=== PATIENT | female | born 1990 | race Caucasian/White ===

== ENCOUNTER 2020-12-05 07:22 | Emergency (ER) | payer MEDICAID, SELFPAY ==
--- NOTE | ~2020-12-05 | CT_ITS ---
EXAMINATION: CT CHEST WITH CONTRAST CLINICAL INFORMATION: Large anterior left mediastinal mass on chest x-ray. Age 30. COMPARISON: Chest radiographs 12/05/2020 TECHNIQUE: Multidetector volumetric CT imaging of the chest was obtained after the administration of 85 mL of Omnipaque 350 intravenous contrast without immediate adverse reactions. Axial MIP volume rendering provided. Sagittal and coronal reformatted images were obtained. This CT examination was performed using dose optimization techniques as appropriate, variously including the following: *Automated exposure control *Adjustment of mA and/or kV according to patient size (this includes techniques or standardized protocols for targeted exams where dose is matched to indication/reason for exam; i.e. extremities or head) *Use of iterative reconstruction technique DLP: 606 mGy-cm FINDINGS: LUNGS: The lungs are clear. There is no airspace consolidation, pulmonary nodule, or lobar segmental atelectasis. The central airways are clear. There is no thoracic or bronchial compression or displacement. No bronchiectasis or endobronchial lesion. MEDIASTINUM: There is a large circumscribed left anterior mediastinal mass at level of great vessels measuring approximately 7 x 7 x 7 cm in size. Attenuation is approximately 33 HU with some lower attenuation foci internally likely necrotic foci. There is no associated calcification. No invasion surrounding structures, although lesion difficult to separate from left thigh numbness. No compression on the trachea or bronchi or pulmonary artery. The thyroid is unremarkable. There are some grouped nodes just superior to lesion just below the base of the neck. Otherwise no mediastinal or hilar adenopathy. No pericardial effusion. No right heart strain. No central PE. PLEURA: No pleural thickening or effusion. No pneumothorax or pneumomediastinum. AXILLA: No lymphadenopathy. No supraclavicular adenopathy. UPPER ABDOMEN: No retrocrural or upper retroperitoneal adenopathy. Spleen normal in size and homogeneous, 11.7 cm sagittal dimension. Visualized liver homogeneous. OSSEOUS STRUCTURES: Unremarkable. CT/CT chest w con IMPRESSION: 1. Large circumscribed anterior left mediastinal mass 7 cm with some small superior left mediastinal nodes. Primary differential considerations include Hodgkin's lymphoma, teratoma, thymic mass. 2. No compression airway or vasculature. No pericardial effusion. Lungs clear.
--- NOTE | ~2020-12-05 | CT_ITS ---
EXAMINATION: CT ABDOMEN AND PELVIS WITHOUT CONTRAST CLINICAL INFORMATION: Mediastinal mass. Assess abdomen and pelvis. COMPARISON: Chest radiographs 12/05/2020, CT chest with contrast 12/05/2020 TECHNIQUE: Multidetector volumetric imaging was performed from the superior aspect of the liver through the pubic symphysis. Exam is performed approximately 90 minutes following contrast enhanced CT chest described in separate report. No additional contrast is given for this exam. Sagittal and coronal reformatted images were obtained on the technologist's workstation. This CT examination was performed using dose optimization techniques as appropriate, variously including the following: *Automated exposure control *Adjustment of mA and/or kV according to patient size (this includes techniques or standardized protocols for targeted exams where dose is matched to indication/reason for exam; i.e. extremities or head) *Use of iterative reconstruction technique DLP: 1003 mGy-cm FINDINGS: LUNG BASES: The visualized lung bases are unremarkable. LIVER, GALLBLADDER, AND BILIARY TREE: The liver is normal in size and smooth in contour, measuring 15.8 cm in length. The hepatic parenchyma appears homogeneous. There is no intrahepatic biliary ductal dilatation. No focal parenchymal lesion demonstrated. The gallbladder is unremarkable with no evidence of radiopaque gallstones, gallbladder wall thickening, or obvious pericholecystic inflammatory changes. PANCREAS: Unremarkable. SPLEEN: The spleen is normal in size measuring 10.5 cm in length. The parenchyma is homogeneous. ADRENAL GLANDS: Normal. KIDNEYS AND URETERS: The kidneys are normal in size and smooth in contour. There is contrast in the pelvicalyceal system and ureters as this exam performed within 90 minutes of contrast enhanced CT chest. There is no hydronephrosis or hydroureter or mucosal thickening. BLADDER: Unremarkable. GASTROINTESTINAL TRACT: There is no bowel obstruction or focal inflammatory changes in the bowel or mesentery. The appendix is normal. There is no ascites or fluid collection. ABDOMINAL WALL: Incidental diastases rectus. No ventral or inguinal hernia. LYMPH NODES: No lymphadenopathy. VASCULAR: Unremarkable. PELVIC VISCERA: The uterus is anteverted and normal in size. No pelvic ascites. There is a mass on the left adnexa merging with the uterus and measuring 3.4 x 4.2 x 4.6 cm. This may represent adnexal mass or exophytic fibroid. On the right, there is a heavily calcified oval mass adjacent to the posterior right uterine body measuring 1.5 x 2.4 x 2.8 cm and density of 526 HU. The contrast density in the urinary bladder is 772 HU by comparison. The right ureter is posterior to the lesion and this does not appear to represent a diverticulum from the ureter. OSSEOUS STRUCTURES: Unremarkable. CT/CT abdomen pelvis wo con IMPRESSION: 1. Abdominal organs unremarkable. Spleen normal in size. No adenopathy or ascites. 2. Left adnexal mass versus exophytic fibroid 3 x 4 x 5 cm. Right adnexal benign calcification versus exophytic calcified fibroid under 3 cm. No pelvic ascites.
--- NOTE | ~2020-12-05 | XR_ITS ---
EXAMINATION: XR CHEST CLINICAL INFORMATION: Gurgling on deep breathing. COMPARISON: None TECHNIQUE: Portable upright AP and lateral views of the chest are obtained. FINDINGS: There is large left anterior mediastinal mass at level of hilum, estimated at 5 cm width and 7 cm height. The heart is normal in size. The vascularity is normal. There is no vascular congestion. The lungs are clear. There is no airspace consolidation or effusion. The costophrenic sulci are well-defined. The visualized bony structures are unremarkable. XR/XR chest 2V IMPRESSION: 1. Large left anterior mediastinal mass. This may be further characterized with CT chest with contrast. 2. Lungs clear. No vascular congestion, infiltrate, or effusion.
[2020-12-05 07:25] VITALS: BP 103/61; PULSE 77; RESP 16; TEMP 36.2; O2SAT 99; BMI 42.7
--- NOTE | 2020-12-05 08:09 | ED_ITS ---
HPI - SOB/Dyspnea General Chief Complaint: Dyspnea Stated Complaint: SOB Time Seen by Provider: 12/05/20 08:09 Source: patient Mode of arrival: ambulatory Limitations: no limitations History of Present Illness HPI Narrative: Patient 8 months ago had COVID. Patient went to [facility] and they checked her heart. She did not have a chest xray. Patient was vaccinated with pfizer. Patient feels that when she takes a deep breath there is gurgling. No fever MD elicited complaint: shortness of breath Onset (ago): month(s) Timing: intermittent Severity: mild Exacerbating factors: deep breaths Related Data Allergies Allergy/AdvReac Type Severity Reaction Status Date / Time No Known Allergies Allergy Unverified 01/19/20 17:23 [No Known Allergies*] Review of Systems Constitutional: Constitutional: Reports no additional constitutional complaints Eyes: Eyes: Reports no additional eye complaints ENT: Denies dizziness Cardiovascular: Cardiovascular: Reports no additional cardiovascular complaints Respiratory: Respiratory: Reports as per HPI Gastrointestinal: Gastrointestinal: Reports no additional gastrointestinal complaints Genitourinary: Genitourinary: Reports no additional female genitourinary complaints Musculoskeletal: Musculoskeletal: Reports no additional musculoskeletal complaints Integumentary/Breasts: Skin/Breast: Denies rash Neurologic: Reports system reviewed and no additional complaints, except as documented, Denies dizziness and Denies Sensory deficit (Neuro) Psychiatric: Psychiatric: Denies anxiety PMFSH Past Medical History Medical History No known health problems Social History Social History Alcohol intake: never Patient Tobacco Use Status: Never used Tobacco Physical Exam Vital Signs: Vital Signs: Last Vital Signs Temp 98.7 F 12/05/20 11:53 Pulse 86 12/05/20 11:53 Resp 18 12/05/20 11:53 BP 109/62 12/05/20 11:53 Pulse Ox 100 12/05/20 11:53 Body Mass Index 42.7 Neuro: Sensory Exam: No Sensory deficit (Neuro) Course Reevaluation(s) Reevaluation #1: Discussed with Dr. Díaz of oncology and Kathy of Thoracic surgery. Patient set up for thoracic appointment on Thursday 12/14 for a meeting with Dr. Be Time: 13:42 MDM - SOB/Dyspnea Lab Data Result diagrams: 12/05/20 09:53 12/05/20 09:53 Labs: Lab Results 12/05/20 12/05/20 12/05/20 Range/Units 09:53 09:53 12:23 WBC 9.4 (4.8-10.8) X10*3/uL RBC 4.49 (4.20-5.50) X10*6/uL Hgb 11.2 L (12.0-16.0) g/dl Hct 35.1 L (37-47) % MCV 78.2 L (80-98) fL MCH 24.9 L (27.0-33.0) pg MCHC 31.9 (31.0-35.0) g/dl RDW 14.8 (11.0-16.0) % Plt Count 369 (160-400) X10*3/uL MPV 8.8 L (9.4-12.3) fL Immature Gran % (Auto) 0.5 H (0.0-0.4) % Neut % (Auto) 69.1 (45-73) % Lymph % (Auto) 18.3 L (20-40) % [place] % (Auto) 7.3 (2-11) % Eos % (Auto) 4.5 H (0-4) % Baso % (Auto) 0.3 (0-2) % Lymph # (Auto) 1.7 (1.2-4.9) X10*3/uL [place] # (Auto) 0.7 (0.1-1.2) X10*3/uL Eos # (Auto) 0.4 (0.0-0.4) X10*3/uL Baso # (Auto) 0.0 (0.0-0.2) X10*3/uL Abs Immat Gran (auto) 0.05 H (0.00-0.03) X10*3/uL Absolute Neuts (auto) 6.5 (2.0-8.3) X10*3/uL Absolute Nucleated RBC 0.000 (0.0-0.012) X10*3/uL Nucleated RBC % (auto) 0.0 (0.0-0.2) /100WBC ESR 39 H (0-20) MM/HR Sodium 139 (135-145) mmol/L Potassium 3.7 (3.3-5.1) mmol/L Chloride 105 (96-108) mmol/L Carbon Dioxide 26 (22-29) mmol/L Anion Gap 12 (12-20) BUN 13 (9-16) mg/dL Creatinine 0.72 (0.5-1.4) mg/dL Estim Creat Clear Calc 127.9 Estimated GFR > 60 Random Glucose 101 (60-115) mg/dL Calcium 9.4 (8.4-10.2) mg/dL Lactate Dehydrogenase (122-220) U/L 12/05/20 Range/Units 12:23 WBC (4.8-10.8) X10*3/uL RBC (4.20-5.50) X10*6/uL Hgb (12.0-16.0) g/dl Hct (37-47) % MCV (80-98) fL MCH (27.0-33.0) pg MCHC (31.0-35.0) g/dl RDW (11.0-16.0) % Plt Count (160-400) X10*3/uL MPV (9.4-12.3) fL Immature Gran % (Auto) (0.0-0.4) % Neut % (Auto) (45-73) % Lymph % (Auto) (20-40) % [place] % (Auto) (2-11) % Eos % (Auto) (0-4) % Baso % (Auto) (0-2) % Lymph # (Auto) (1.2-4.9) X10*3/uL [place] # (Auto) (0.1-1.2) X10*3/uL Eos # (Auto) (0.0-0.4) X10*3/uL Baso # (Auto) (0.0-0.2) X10*3/uL Abs Immat Gran (auto) (0.00-0.03) X10*3/uL Absolute Neuts (auto) (2.0-8.3) X10*3/uL Absolute Nucleated RBC (0.0-0.012) X10*3/uL Nucleated RBC % (auto) (0.0-0.2) /100WBC ESR (0-20) MM/HR Sodium (135-145) mmol/L Potassium (3.3-5.1) mmol/L Chloride (96-108) mmol/L Carbon Dioxide (22-29) mmol/L Anion Gap (12-20) BUN (9-16) mg/dL Creatinine (0.5-1.4) mg/dL Estim Creat Clear Calc Estimated GFR Random Glucose (60-115) mg/dL Calcium (8.4-10.2) mg/dL Lactate Dehydrogenase 351 H (122-220) U/L Imaging Data CT scan - chest: Radiologist's impression: IMPRESSION: 1. Large circumscribed anterior left mediastinal mass 7 cm with some small superior left mediastinal nodes. Primary differential considerations include Hodgkin's lymphoma, teratoma, thymic mass. ? 2. No compression airway or vasculature. No pericardial effusion. Lungs clear. CT scan - abdomen: Radiologist's impression: IMPRESSION: ? 1. Abdominal organs unremarkable. Spleen normal in size. No adenopathy or ascites. ? 2. Left adnexal mass versus exophytic fibroid 3 x 4 x 5 cm. Right adnexal benign calcification versus exophytic calcified fibroid under 3 cm. No pelvic ascites. Discharge Plan Discharge Clinical Impression: Chest mass Patient Disposition: Home, Self-Care Additional Instructions: return for increased shortness of breath Referrals: Basia Jamison MD [Physician] - 12/14/20 11:15 am (evaluation for thoracic mass)
[2020-12-05 08:27] VITALS: BP 106/60; PULSE 70; RESP 17; TEMP 37.2; O2SAT 98
[2020-12-05 09:59] LABS: MANUAL DIFF FLAG NO
[2020-12-05 10:02] LABS: Basophils Percent Auto 0.3 % (0-2); Eosinophils Absolute Auto 0.4 X10*3/uL (0.0-0.4); Eosinophils Percent Auto 4.5 % (0-4); Hematocrit 35.1 % (37-47); Hemoglobin 11.2 g/dl (12.0-16.0); Imm Gran Abs Auto 0.05 X10*3/uL (0.00-0.03); Imm Gran Pct Auto 0.5 % (0.0-0.4); Lymphocytes Absolute Auto 1.7 X10*3/uL (1.2-4.9); Lymphocytes Percent Auto 18.3 % (20-40); Mean Corpuscular HGB Conc 31.9 g/dl (31.0-35.0); Mean Corpuscular Hemoglobin 24.9 pg (27.0-33.0); Mean Corpuscular Volume 78.2 fL (80-98); Mean Platelet Volume 8.8 fL (9.4-12.3); Monocytes Absolute Auto 0.7 X10*3/uL (0.1-1.2); Monocytes Percent Auto 7.3 % (2-11); Neutrophils Absolute Auto 6.5 X10*3/uL (2.0-8.3); Neutrophils Percent Auto 69.1 % (45-73); Platelet Count 369 X10*3/uL (160-400); Red Blood Count 4.49 X10*6/uL (4.20-5.50); Red Cell Distribution Width 14.8 % (11.0-16.0); White Blood Count 9.4 X10*3/uL (4.8-10.8)
[2020-12-05 10:26] LABS: Anion Gap 12 (12-20); Blood Urea Nitrogen 13 mg/dL (9-16); Calcium 9.4 mg/dL (8.4-10.2); Carbon Dioxide 26 mmol/L (22-29); Chloride 105 mmol/L (96-108); Creatinine Clr Calc Pharmacy 127.9; Estimated Glomerular Filt Rate > 60; Glucose Random 101 mg/dL (60-115); Potassium 3.7 mmol/L (3.3-5.1); Sodium 139 mmol/L (135-145)
[2020-12-05] MEDS: iohexoL 350 MG/ML 100 ML INFUS..BTL IV (10:41)
[2020-12-05 11:03] VITALS: BP 102/63; PULSE 72; RESP 16; TEMP 37.1; O2SAT 100
[2020-12-05 11:53] VITALS: BP 109/62; PULSE 86; RESP 18; TEMP 37.1; O2SAT 100
--- NOTE | 2020-12-05 11:56 | PC.NURSE ---
pt a&ox3, vss, pt requesting something to drink, pt c/o midsternal pain with inspiration only 1/10, will continue to monitor.
[2020-12-05 13:10] LABS: Lactate Dehydrogenase 351 U/L (122-220)
[2020-12-05 13:27] LABS: Erythrocyte Sedimentation Rate 39 MM/HR (0-20)
[2020-12-05 14:38] LABS: Lactate Dehydrogenase 309 U/L (122-220)
[2020-12-06 13:20] LABS: Alpha Fetoprotein 2.2 ng/mL
[2020-12-06 15:47] LABS: HCG Tumor Marker <3 mIU/mL
[2020-12-08 22:56] LABS: Acetylcholine Recept. Blocking <15 (<15)
[2020-12-09 23:46] LABS: Acetylcholine Receptor Binding <0.30 nmol/L
[2020-12-10 23:02] LABS: Incubated PTT-LA Mix CORRECTED; Mixing Study - PT 10.9 sec (9.0-11.5); PTT LA 52 sec (< OR = 40); PTT-LA Mix CORRECTED
[2020-12-11 22:17] LABS: Acetylcholine Recep Modulating 20
== END 2020-12-05 14:08 | disposition home or self-care (01) ==
PROVIDERS: Physician Assistant; Emergency Provider Emergency Medicine
DX: R22.2 Localized swelling, mass and lump, trunk (principal)
CPT/HCPCS: 36415; 71046; 71260; 74176; 80048; 82105; 83519; 83615; 84702; 85025; 85611; 85652; 85732; 99284; Q9967

== ENCOUNTER → 2020-12-14 10:58 | Outpatient (BNVA) | payer MEDICAID, SELFPAY | PROVIDERS: Visit Provider Surgery | DX: J98.59 Other diseases of mediastinum, not elsewhere classified (principal) | CPT/HCPCS: 99212 ==

== ENCOUNTER 2020-12-27 16:08 | Outpatient (REF) | payer MEDICAID, SELFPAY ==
[2020-12-27 16:57] LABS: Hematocrit 33.7 % (37-47); Hemoglobin 10.9 g/dl (12.0-16.0); Mean Corpuscular HGB Conc 32.3 g/dl (31.0-35.0); Mean Corpuscular Hemoglobin 25.2 pg (27.0-33.0); Mean Corpuscular Volume 77.8 fL (80-98); Mean Platelet Volume 9.3 fL (9.4-12.3); Platelet Count 406 X10*3/uL (160-400); Red Blood Count 4.33 X10*6/uL (4.20-5.50); Red Cell Distribution Width 14.7 % (11.0-16.0); White Blood Count 9.4 X10*3/uL (4.8-10.8)
== END 2020-12-27 16:09 | disposition home or self-care (01) ==
LOC: HO.LAB 16:08
PROVIDERS: PCP Nurse Practitioner Family; Visit Provider Surgery
DX: J98.59 Other diseases of mediastinum, not elsewhere classified (principal)
CPT/HCPCS: 36415; 85027

== ENCOUNTER 2020-12-28 11:24 | Day surgery (SDC) | payer MEDICAID, SELFPAY ==
[2020-12-28] VITALS (10 sets, daily range): BP systolic 94–111; BP diastolic 54–67; PULSE 54–78; RESP 18–20; TEMP 36.2–36.4; O2SAT 96–100; BMI 42.9
--- NOTE | ~2020-12-28 | CT_ITS ---
PROCEDURE: CT-GUIDED ASPIRATION, FINE NEEDLE, WITH IMAGE GUIDANCE CLINICAL INFORMATION: Mediastinal mass. COMPARISON: None TECHNIQUE: Procedure and risks and benefits including bleeding, infection and pneumothorax were discussed with the patient and informed consent was obtained. The patient was positioned in the supine position. Limited axial images through the upper chest following 65 mL of Omnipaque 350 intravenous contrast. The left upper anterior chest was prepped and draped in the usual sterile fashion. The skin and soft tissues were anesthetized with 1% lidocaine plain. Using CT guidance and a coaxial system, access to the left-sided mediastinal mass was obtained. Six 20-gauge core biopsies were obtained and placed in formalin and flow cytometry solution. The patient received Versed 2 mg and fentanyl 100 mcg intravenously during the procedure. Total sedation time was [address] examination was performed using dose optimization techniques as appropriate, variously including the following: *Automated exposure control *Adjustment of mA and/or kV according to patient size (this includes techniques or standardized protocols for targeted exams where dose is matched to indication/reason for exam; i.e. extremities or head) *Use of iterative reconstruction technique DLP: 159 mGy-cm FINDINGS: There is a large left-sided mediastinal mass. Postbiopsy images demonstrate no evidence of hemorrhage or pneumothorax. CT/CT guided FNA IMPRESSION: CT-guided mediastinal mass biopsy.
--- NOTE | ~2020-12-28 | XR_ITS ---
EXAMINATION: XR CHEST CLINICAL INFORMATION: Post lung biopsy COMPARISON: Previous chest x-ray 12/06/2019 TECHNIQUE: Frontal view of the chest was obtained. FINDINGS: The cardiac silhouette does not appear enlarged. There is a left-sided mediastinal mass that appears unchanged. The lungs are clear. There is no pleural effusion or pneumothorax. Bony structures are unremarkable. XR/XR chest 1V IMPRESSION: No pneumothorax. Stable left mediastinal mass.
[2020-12-28 11:53] LABS: UPreg QC Valid YES; Urine Pregnancy NEGATIVE (NEGATIVE)
[2020-12-28 12:02] LABS: INTERNATIONAL NORM RATIO 1.1 (0.9-1.1); Prothrombin Time 12.3 SEC (9.9-13.0)
[2020-12-28 12:05] LABS: Partial Thromboplastin Time 43.6 SEC (24.1-38.0)
== END 2020-12-28 16:42 | disposition home or self-care (01) ==
PROVIDERS: Radiology Diagnostic Radiology; PCP Nurse Practitioner Family; Visit Provider Radiology Diagnostic Radiology
DX: J98.59 Other diseases of mediastinum, not elsewhere classified (principal); Z86.16 Personal history of COVID-19
CPT/HCPCS: 10009; 32408; 36415; 71045; 81025; 85610; 85730; 88184; 88185; 88300; 88305; 88313; 88333; 88341; 88342; 88360; 99152; 99153; J2250; J3010

== ENCOUNTER 2021-01-04 15:00 | Outpatient (REF) | payer MEDICAID, SELFPAY ==
--- NOTE | ~2021-01-04 | MR_ITS ---
EXAMINATION: MR CHEST WITHOUT AND WITH CONTRAST CLINICAL INFORMATION: Mediastinal mass. COMPARISON: Chest CT 12/05/2020nd chest x-ray 12/28/2020. TECHNIQUE: Sagittal axial and coronal sequences through the chest with and without contrast. The patient received 10 mL of intravenous Gadavist contrast. FINDINGS: There is a large left mediastinal mass. This measures 7 x 7 x 9 cm in AP transverse and longitudinal dimension. This abuts the left innominate vein, aortic arch, AP window region and the left heart border. This is low signal on T1 weighted sequences. This is slightly high signal and heterogeneous on T2 weighted sequences. There is no loss of signal on out of phase sequences. There are linear low-signal areas on T2-weighted sequences seen in the lesion. This may be related to blood product and recent biopsy as no calcifications are seen on CT scan. This has well-defined borders. This demonstrates gradual delayed homogeneous enhancement. Lungs are clear. The heart does not appear enlarged. There is no pericardial effusion. There are small mediastinal lymph nodes in the paratracheal and subcarinal regions. No hilar adenopathy is seen. There is no pleural effusion or pleural thickening. No chest wall mass or enlarged axillary lymph nodes are seen. Thyroid gland is not well visualized. This appears separate from the thyroid gland. Images through the upper abdomen are unremarkable. Bony structures are unremarkable. MR/MR chest wo/w con IMPRESSION: Large enhancing left-sided mediastinal mass. This does not demonstrate loss of signal on out of phase sequences to suggest thymic hyperplasia. Differential would include thymoma, less likely thymic carcinoma, lymphoma, germ cell tumor and metastatic disease.
== END 2021-01-04 15:01 | disposition home or self-care (01) ==
LOC: HO.MRI 15:00
PROVIDERS: PCP Nurse Practitioner Family; Visit Provider Surgery
DX: J98.59 Other diseases of mediastinum, not elsewhere classified (principal)
CPT/HCPCS: 71552; A9585

== ENCOUNTER → 2021-01-11 10:19 | Outpatient (BNVA) | payer MEDICAID, SELFPAY | PROVIDERS: PCP Nurse Practitioner Family; Visit Provider Surgery | DX: J98.59 Other diseases of mediastinum, not elsewhere classified (principal); C85.10 Unspecified B-cell lymphoma, unspecified site | CPT/HCPCS: 99212 ==

== ENCOUNTER → 2021-01-28 08:58 | Outpatient (BNV) | payer MEDICAID, SELFPAY | PROVIDERS: Referring Provider Surgery; Visit Provider Internal Medicine Medical Oncology | DX: C85.22 Mediastinal (thymic) large B-cell lymphoma, intrathoracic lymph nodes (principal) | CPT/HCPCS: 99203; 99213; 99214 ==

== ENCOUNTER 2021-01-28 10:25 | Outpatient (REF) | payer MEDICAID, SELFPAY | END 2021-01-28 10:26 | disposition home or self-care (01) | LOC: HO.LAB 10:25 | PROVIDERS: Visit Provider Internal Medicine Medical Oncology | DX: Z13.89 Encounter for screening for other disorder (principal) ==

== ENCOUNTER 2021-02-05 08:59 | Outpatient (REF) | payer MEDICAID, SELFPAY ==
--- NOTE | ~2021-02-05 | PE_ITS ---
EXAMINATION: Fluorine-18 FDG PET/CT Scan CLINICAL INDICATION: Initial treatment management. Large B-cell lymphoma, initial staging. PROCEDURE: 71 minutes following the intravenous administration of 14.9 mCi of fluorine 18 FDG, images from the base of the skull to the mid thighs were obtained using a combined PET/CT scanner with CT scan based attenuation correction. No oral contrast was administered. No intravenous contrast was administered. Transverse, coronal, sagittal, and volume reconstruction projections were obtained. The patient's blood glucose as determined by a finger stick, was 99 mg/dl immediately prior to injection. Total CT exam dose-length product 1032.89 mGy-cm * These CT images were obtained using dose optimization techniques as appropriate, variously including the following: Automated exposure control * Adjustment of mA and/or kV according to patient size (this includes techniques or standardized protocols for targeted exams where dose is matched to indication/reason for exam; i.e. extremities or head) * Use of iterative reconstruction technique COMPARISON: No previous PET/CT scan is available for comparison. The diagnostic CT scan of the chest, abdomen, and pelvis, dated 12/05/2020, is available for comparison. FINDINGS: NECK AND VISUALIZED HEAD: No foci of abnormal FDG activity are noted. The distribution of FDG activity is physiological. There is no cervical lymphadenopathy. There is some retained mucus present posteriorly in the right maxillary sinus, with no associated abnormal FDG activity. THORAX: There is an intensely FDG avid anterior mediastinal mass showing SUVmax 28.6, slice 75/267. This measures 8.0 x 6.7 cm in largest transverse dimensions, and approximately 7 cm cephalocaudad. It appears very similar to its appearance on the eighth 08/21/[address] scan with slight differences in measurements possibly due to the difference in technique with the previous study performed with a breath-hold. No additional foci of abnormal FDG activity are present in the chest. No pulmonary nodules are visualized. A small left pleural effusion is present and this is new since 12/05/2020. There is no additional mediastinal, supraclavicular, or axillary lymphadenopathy. There is no pneumothorax or pericardial fluid. ABDOMEN AND PELVIS: There is a left adnexal mass which is predominantly fluid density which measures 3.9 x 2.6 cm in largest transverse dimensions, and approximately 3.4 cm cephalocaudad. The posterior aspect of this shows weak FDG activity, SUVmax 4.9, slice 202/267. A dense calcification abutting the right lateral aspect of the uterus is noted measuring 2.4 x 1.3 cm in largest transverse dimension and 3.5 cm in largest dimension in the coronal plane, and this shows no associated abnormal FDG activity.. Both of these findings are not significantly changed from the 12/05/2020 CT scan of the abdomen and pelvis. More intensely increased FDG activity is present in the endometrial cavity, showing SUVmax 5.7, slice 201/267. This may be physiological depending on the patient's current menstrual status. No other foci of abnormal FDG activity are present in the abdomen or pelvis. There is mild FDG activity throughout the gastrointestinal tract without a suspicious focal component. There is diverticulosis without evidence of diverticulitis. The hollow viscera are otherwise unremarkable. The liver, gallbladder, spleen, kidneys, and adrenal glands are unremarkable. There is no retroperitoneal, mesenteric, pelvic or inguinal lymphadenopathy. MUSCULOSKELETAL: The bone marrow FDG activity is slightly prominent in the spine and pelvis, but this is not definitely outside the limits of normal. There are no discrete foci of more intensely increased FDG activity in the osseous structures. There are no suspicious sclerotic or lytic lesions visualized. VASCULAR: No significant abnormalities are present. PET/PET CT fusion skull to thigh IMPRESSION: 1. An intensely FDG avid anterior mediastinal mass is present as described above, consistent with the known diagnosis of large B-cell lymphoma. 2. A left sided predominantly cystic adnexal mass is present, similar to its appearance on the 12/05/[address] scan. There is some mild FDG activity in the posterior aspect of this which is of uncertain clinical significance, but the mild intensity suggests this is not malignant in etiology. This could be further characterized with MRI performed without and with intravenous contrast. 3. Mild FDG activity in the endometrial cavity is nonspecific but most likely related to menstruation. Clinical correlation is recommended. This is probably physiological. 4. A dense calcification abutting the right side of the uterus is unchanged from the 12/05/2020 CT scan with no associated abnormal FDG activity. This is likely a benign adnexal calcification or exophytic calcified fibroid. 5. No additional abnormalities suspicious for other metastatic or malignant lesions are noted.
== END 2021-02-05 09:00 | disposition home or self-care (01) ==
LOC: HO.PET 08:59
PROVIDERS: Visit Provider Internal Medicine Medical Oncology
DX: Z13.89 Encounter for screening for other disorder (principal)

== ENCOUNTER 2021-02-05 11:29 | Day surgery (SDC) | payer MEDICAID, SELFPAY ==
[2021-02-05 11:47] VITALS: BMI 41.5
[2021-02-05 11:52] LABS: UPreg QC Valid YES; Urine Pregnancy NEGATIVE (NEGATIVE)
[2021-02-05 12:10] VITALS: BP 121/77; PULSE 78; RESP 16; TEMP 36.7; O2SAT 99
--- NOTE | 2021-02-05 13:30 | PM.HEMONCBM ---
Bone Marrow Aspiration - Bone Marrow Aspiration Procedure:: *Service Date: [02/05/21] Bone Marrow Aspiration & Biopsy. Pre Op Diagnosis:: Mediastinal Lymphoma. Post Op Diagnosis:: Mediastinal Lymphoma. Surgeon:: Sheila Galvan. Anesthesia:: MAC. Consent:: Informed consent obtained from the patient for the procedure. Pros and cons of biopsy explained. The patient was willing to proceed with the procedure under MAC and local anesthesia. Procedure in Detail:: *Service Date: 02/05/21. *Procedure: Bone marrow aspirate & biopsy. *Pre Op Dx: Mediastinal Lymphoma. *Post Op Dx: Same. *Surgeon: Sheila Galvan. . The patient was positioned prone. The left posterior superior iliac spine prepped and draped. Pt. was anesthetized under MAC. Under aseptic precautions, 7.5 ml of 1% lidocaine used for local anesthesia. Abone marrow aspirate was taken. With the Jamshidi needle, a core biopsy obtained without any complications. Specimens were sent for allen's stain, flow cytometry and cytogenetics. Biopsy was sent for histology. The patient tolerated the procedure well. Bandage was applied and patient was positioned on her back for 10 to 15 minutes after the procedure. The patient was advised to call us if she develops any pain or swelling at the surgical site. Follow up in 2 weeks.
[2021-02-05 13:35] VITALS: BP 111/66; PULSE 65; RESP 16; TEMP 36.8; O2SAT 94
[2021-02-05 13:39] LABS: Bone Marrow SEE SEPARATE REPORT
[2021-02-05 13:50] VITALS: BP 105/70; PULSE 70; RESP 18; TEMP 36.8; O2SAT 98
== END 2021-02-05 14:53 | disposition home or self-care (01) ==
PROVIDERS: Anesthesiology; Visit Provider Internal Medicine Medical Oncology
PROC: (CPT 38221; principal; 2021-02-05 12:30)
DX: C85.20 Mediastinal (thymic) large B-cell lymphoma, unspecified site (principal); R07.9 Chest pain, unspecified; R53.83 Other fatigue; E66.01 Morbid (severe) obesity due to excess calories; Z68.41 Body mass index [BMI] 40.0-44.9, adult; Z86.16 Personal history of COVID-19
CPT/HCPCS: 38222; 36415; 81025; 85097; 88184; 88185; 88237; 88264; 88280; 88305; 88311; 88313; J1100; J1642; J2250; J2405; J3010

== ENCOUNTER 2021-02-08 07:14 | Day surgery (SDC) | payer MEDICAID, SELFPAY ==
--- NOTE | ~2021-02-08 | IR_ITS ---
EXAMINATION: ULTRASOUND AND FLUOROSCOPY-GUIDED PORT INSERTION CLINICAL INFORMATION: Port insertion for chemotherapy. B-cell lymphoma. COMPARISON: None TECHNIQUE: Following explaining ultrasound fluoroscopy-guided placement of right-sided portacatheter tube procedure, benefits and risk, a written consent was obtained. Patient was placed supine on fluoroscopy table and preliminary ultrasound imaging was obtained through the right neck. An optimal site was selected and marked on the skin. The marked site was cleaned and draped in usual sterile manner. 1% lidocaine was injected in puncture site. Under sterile ultrasound guidance, a single wall needle was advanced and a right jugular vein was punctured above the right clavicle. After observing blood return, a thin guidewire was advanced through the needle and needle withdrawn. A 5 Turkish sheath with dilator was placed over the guidewire. The guidewire and the sheath was anchored to the patient's drape. Approximately 1 gauze length to the right and along the anterior chest wall 1% lidocaine was injected and a small skin incision performed. Blunt dissection was performed subcutaneously and a pocket created. The hardware was filed into the pocket several times. The chamber was then anchored to the skin with 2 3-0 nylon sutures. 1% lidocaine was then subcutaneous advanced from the right chest wall incision to the right neck incision. A blunt tunneler connected to the port catheter was then advanced subcutaneously from the chest wall incision to the right neck incision. The tunneler was pulled and so was the catheter. The catheter was then sized appropriately. The 5 Turkish dilator was removed and a 0.035 inch J-wire was advanced through the 5 Turkish sheath under fluoroscopy and placed in IVC. The sheath was withdrawn and a 6 Turkish dilator sheath was advanced over the guidewire. The guidewire and the dilator were removed and sized dasha catheter was inserted through the sheath. The sheath was peeled away as the catheter was held in position. After removing the the peel-away, fluoroscopy was performed to confirm position of catheter within the SVC. The neck and the anterior chest wall incisions were then sutured with 3 0 absorbable sutures. Steri-Strips were placed at the incision site. Initially the port was accessed and blood was aspirated followed by saline flush, followed by heparin flush. Sterile dressing applied postprocedure. Conscious sedation, Versed and fentanyl was administered and patient monitored for minutes during exam. Patient tolerated procedure extremely well. FINDINGS: On preliminary ultrasound imaging, there is widely patent jugular vein. Approximately 20 cm long 6.6 Turkish Port-A-Cath placement with its tip in distal SVC. The catheter is in good position and ready to be used. IR/IR us guide venous access IMPRESSION: Successful ultrasound and fluoroscopy-guided placement of right Port-A-Cath with its tip in distal SVC, ready for use.
[2021-02-08 08:09] VITALS: BMI 41.5
[2021-02-08 08:10] VITALS: BP 109/42; PULSE 72; RESP 18; TEMP 36.6; O2SAT 98
[2021-02-08] MEDS: Lidocaine HCl 1 % MPF 5 ML VIAL SUBCUT (10:24)
[2021-02-08 10:25] VITALS: BP 110/67; PULSE 64; RESP 16; TEMP 36.3; O2SAT 100
[2021-02-08] MEDS: Heparin Sodium,Porcine Flush 500 UNIT/5 ML SYRINGE IVFLUSH (10:28)
[2021-02-08 10:40] VITALS: BP 117/65; PULSE 73; RESP 16; O2SAT 100
[2021-02-08 10:55] VITALS: BP 119/69; PULSE 69; RESP 16; O2SAT 98
[2021-02-08] MEDS: Acetaminophen 325 MG TABLET 650 MG PO (10:55)
[2021-02-08 11:10] VITALS: BP 117/71; PULSE 69; RESP 16; O2SAT 99
[2021-02-08 11:25] VITALS: BP 117/68; PULSE 69; RESP 16; TEMP 36.3; O2SAT 99
== END 2021-02-08 11:34 | disposition home or self-care (01) ==
LOC: HO.SSS 07:14
PROVIDERS: PCP Nurse Practitioner Family; Visit Provider Radiology Diagnostic Radiology
DX: C85.22 Mediastinal (thymic) large B-cell lymphoma, intrathoracic lymph nodes (principal)
CPT/HCPCS: 36561; 36597; 76937; C1769; C1788; J0690; J1642; J2250; J3010

== ENCOUNTER → 2021-02-13 08:28 | Outpatient (REF) | payer MEDICAID, SELFPAY ==
--- NOTE | 2021-02-13 08:33 | CA_ITS ---
Transthoracic Echocardiogram Patient (Last, First, Middle): Germania Smith, Gender: Female Date of : 1990 Age: 30 Procedure Date: 02/13/2021 Procedure Type: Transthoracic Echocardiogram Location: OP Height: 154.94 cm Weight: 99.79 kg BSA: 1.97 m2 Heart Rate: bpm BP: 108 / 62 mmHg [employer]: ADARSH Referring MD: Sheila Galvan MD Card Cutter Helper: Juan Carlos Arevalo MD Symptoms: Large-cell lymphoma, pre chemotherapy cardiac assessment Study Quality: Fair ECG Rhythm: Sinus Conclusions: - Essentially normal study Findings Left Ventricle Normal left ventricular size, thickness, and systolic function. The visually estimated ejection fraction is between 60-65%. Spectral Doppler is indicative of a normal filling pattern. Right Ventricle Normal right ventricular cavity size and systolic function. Atria Both atria are normal in size. Interatrial shunt cannot be excluded. Aortic Valve The aortic valve structure and function is likely normal. There is no aortic valve stenosis. There is no aortic valve regurgitation. Mitral Valve Normal mitral valve structure and function. There is no mitral valve regurgitation. There is no mitral valve stenosis. Pulmonic Valve The pulmonic valve was not well visualized. Tricuspid Valve Likely normal tricuspid valve structure and function. Tricuspid regurgitation envelope is inadequate for calculation of right ventricular systolic pressure. Great Vessels All visible segments of the aorta are normal in size. The pulmonary artery was not well visualized. Venous The inferior vena cava is normal in size and collapses greater than 50% with inspiration. Pericardium/Pleural There is no evidence of pericardial effusion. Prior Study Comparison No prior study available for comparison. Measurements 2D Linear Measurements IVSd: 0.99 0.6-0.9/0.6-1.0 cm LVIDd: 4.57 3.9-5.3/4.2-5.9 cm LVIDd Index: 2.32 2.4-3.2/2.2-3.1 cm/m2 LVIDs: 3.02 2.0-3.6 cm LVPWd: 1.04 0.7-1.1 cm Ao Root: 2.30 2.1-3.5 cm LA Diam: 3.20 2.7-3.8/3.0-4.0 cm LAIDs Index: 1.62 1.5-2.3 cm/m2 LV Mass: 199.87 67-162/88-224 g LV Mass Index: 101.46 43-95/49-115 g/m2 LVOT Diam: 1.90 3.0+(-)1.3 cm 2D Systolic Function EF 4C: 60.60 >55% EF 2C: 60.10 >55% EF BiP: 62.10 >55% Mitral Valve MV Pk E: 1.09 MV PK A: 0.72 MV Decel Time: 183.00 E/A: 1.50 E'Lateral: 16.80 E'Medial: 12.60 E/E' Med: 8.70 E/E' Lat: 6.50 PHT: 54.00 MVA PHT: 4.07 Decel [place]: 5.95 Aortic Valve AoV Pk Demar: 1.34 AoV Pk Grad: 7.00 LVOT LVOT Pk Demar: 1.19 LVOT Mn Demar: 0.83 LVOT VTI: 0.24 LVOT Pk Grad: 6.00 LVOT Mn Grad: 3.00 LVOT Diam: 1.90 LVOT Area: 2.84 Diastolic Function MV Pk E: 1.09 MV Pk A: 0.72 E/A: 1.50 E'Medial: 12.60 E/E' Med: 8.70 E' Laterial: 16.80 E/E' Lat: 6.50 Right Ventricle TAPSE (mm): 2.19 Tricuspid Valve RA Press: 3.00 Great Vessels Aorta Ao Root-2D: 2.30 2.0-3.7 cm Ao Asc: 2.30 2.1-3.4 cm Updated in Other Vendor System with Status of Final Juan Carlos Arevalo MD electronically signed on 02/14/2021 6:08:32 PM with status of Final
== END ==
LOC: HO.CARD 08:28
PROVIDERS: Visit Provider Internal Medicine Medical Oncology
DX: C85.10 Unspecified B-cell lymphoma, unspecified site (principal)
CPT/HCPCS: 93306

== ENCOUNTER 2021-02-14 08:45 | Day surgery (SDC) | payer MEDICAID, SELFPAY ==
[2021-02-14] VITALS (7 sets, daily range): BP systolic 108–121; BP diastolic 56–70; PULSE 61–97; RESP 18–20; TEMP 36.7; O2SAT 96–99; BMI 41.5
--- NOTE | ~2021-02-14 | FL_ITS ---
EXAMINATION: FL LUMBAR PUNCTURE CLINICAL INFORMATION: B-cell lymphoma. COMPARISON: PET/CT of 02/05/2021. TECHNIQUE: Fluoroscopic-guided lumbar puncture. FINDINGS: Informed consent was obtained from the patient prior to the procedure. During this process, the procedure and potential alternatives were explained, along with the intended outcome and benefits. The risks of the procedure, as well as the risk of not doing the procedure, were discussed. The patient was given the opportunity to ask questions regarding the procedure and appeared competent to make medical decisions. A signed consent form which documents this discussion was placed in the medical record. Using sterile technique and fluoroscopic guidance a 20-gauge spinal needle was directed into the L3-L4 level thecal sac. Opening pressure 18.5 cmH2O. A total of 7 mL of cerebrospinal fluid was obtained in 4 vials. Patient tolerated the procedure without difficulty. FLUOROSCOPY TIME: 0.7 minutes DOSE AREA PRODUCT: 3.848 Gy-cm2 (frank-centimeter squared) FL/FL guided lumbar puncture LP IMPRESSION: Uncomplicated lumbar puncture with opening pressure of 18.5 cmH2O.
[2021-02-14 09:13] LABS: Urine Pregnancy NEGATIVE (NEGATIVE)
[2021-02-14 09:14] LABS: UPreg QC Valid YES
[2021-02-14] MEDS: Lidocaine HCl 1 % 20 ML VIAL 5 ML INFILTRATI (14:14)
[2021-02-14 14:48] LABS: Glucose CSF 53 mg/dL; Total Protein CSF 36.6 mg/dL (15-45)
[2021-02-14 15:01] LABS: CSF Appearance Hazy; CSF Tube # 1
[2021-02-14 15:28] LABS: Appearance CSF HAZY; CSF Tube # 2
[2021-02-14 15:29] LABS: Color CSF STRAW; Lymphocytes CSF 50 %; Neutrophils CSF 50 %; Red Blood Cell CSF 707 MM*3; White Blood Cell CSF 5 MM*3
== END 2021-02-14 17:05 | disposition home or self-care (01) ==
LOC: HO.SSS 08:45
PROVIDERS: Internal Medicine Medical Oncology; PCP Nurse Practitioner Family; Visit Provider Radiology Diagnostic Radiology
PROC: 009U3ZZ Drainage of Spinal Canal, Percutaneous Approach (ICD-10-PCS; CPT 62270; principal; 2021-02-14 11:00)
DX: C85.10 Unspecified B-cell lymphoma, unspecified site (principal)
CPT/HCPCS: 62328; 81025; 82945; 84157; 87015; 87070; 87116; 87205; 88108; 89051

== ENCOUNTER 2021-02-20 11:35 | Outpatient (REF) | payer MEDICAID, SELFPAY ==
[2021-02-21 05:10] LABS: CT PCR NOT DETECTED (Not Detect.)
[2021-02-21 05:11] LABS: NG PCR NOT DETECTED (Not Detect.)
== END 2021-02-20 11:36 | disposition home or self-care (01) ==
LOC: HO.LAB 11:35
PROVIDERS: Visit Provider Obstetrics & Gynecology
DX: Z30.09 Encounter for other general counseling and advice on contraception (principal); N94.89 Other specified conditions associated with female genital organs and menstrual cycle
CPT/HCPCS: 87491; 87591; 88142; 99202

== ENCOUNTER 2021-03-05 15:04 | Outpatient (REF) | payer MEDICAID, SELFPAY ==
--- NOTE | ~2021-03-05 | MR_ITS ---
EXAMINATION: MR PELVIS WITHOUT AND WITH CONTRAST CLINICAL INFORMATION: N94.89 - Other specified conditions associated with female. Large B-cell lymphoma. Weak FDG activity posterior aspect left adnexal lesion. COMPARISON: PET/CT 02/05/2021, CT abdomen and pelvis 12/05/2020. TECHNIQUE: MR pelvis is performed without and with use of 10 mL Gadavist gadolinium contrast. Imaging is performed in 3 planes. Postcontrast images are obtained in the axial plane. FINDINGS: Uterus: Uterus is anteverted and mildly retroflexed and normal in size. Uterine dimensions are 9.1 x 4.3 x 5.3 cm. The endometrial thickness is 0.8 cm. There is no fluid in uterine cavity. Uterine contours are smooth. The junctional zone appears normal. There is no visible fibroid. Focal dephasing is present at the lower anterior uterine segment suggesting scar. There is also some focal dephasing in the anterior abdominal wall soft tissues consistent with prior surgery. Adnexa: The left ovary appears normal measuring 3.4 x 2.8 x 3.2 cm. There are scattered follicles present. No cystic or solid mass. No pelvic ascites. The right ovary is not seen with certainty. There is a chronic smooth oval calcification posterior right cul-de-sac measuring 2.8 x 1.4 x 1.5 cm, similar to prior CT studies. Other: There is no deep pelvic or internal lymphadenopathy. No inguinal hernia. No inflammatory changes in bowel or mesentery. Bone marrow signal is normal. Large [id number] coronal images show no hydronephrosis. MR/MR pelvis wo/w con IMPRESSION: 1. Uterus: Small scar. No fibroid. No endometrial thickening. 2. Adnexa: Normal left ovary. No left adnexal mass. Oval calcification posterior right cul-de-sac. Right ovary not visualized. No ascites.
== END 2021-03-05 15:05 | disposition home or self-care (01) ==
LOC: HO.MRI 15:04
PROVIDERS: Visit Provider Obstetrics & Gynecology
DX: N94.89 Other specified conditions associated with female genital organs and menstrual cycle (principal)
CPT/HCPCS: 72197; A9585

== ENCOUNTER 2021-03-13 02:00 | Emergency (ER) | payer MEDICAID, SELFPAY ==
--- NOTE | ~2021-03-13 | CT_ITS ---
EXAMINATION: CT ANGIOGRAM OF THE CHEST WITH AND WITHOUT CONTRAST (CT PULMONARY ANGIOGRAM FOR PE) CLINICAL INFORMATION: Reason for Exam chest pain COMPARISON: 12/05/2020 TECHNIQUE: Prior to contrast administration, noncontrast localization images were obtained. Subsequently, multidetector volumetric imaging was performed from the thoracic inlet to below the diaphragms following the administration of 65 mL Omnipaque 350 intravenous contrast. No contrast reaction reported Sagittal, coronal, and MIP oblique sagittal reformatted images were obtained on the CT workstation, uploaded to PACS, and reviewed. This CT examination was performed using dose optimization techniques as appropriate, variously including the following: *Automated exposure control *Adjustment of mA and/or kV according to patient size (this includes techniques or standardized protocols for targeted exams where dose is matched to indication/reason for exam; i.e. extremities or head) *Use of iterative reconstruction technique Total exam dose-length product 374 mGy-cm FINDINGS: QUALITY OF STUDY/CONTRAST BOLUS: Satisfactory. PULMONARY ARTERIES: No central or segmental pulmonary emboli. THORACIC AORTA: No aneurysm or dissection. LUNG: No focal consolidation, nodules or masses. The central airways are patent. PLEURA: No pleural effusion or pneumothorax. MEDIASTINUM: Normal heart size. No pericardial effusion. No hilar or mediastinal lymphadenopathy. No evidence of septal bowing or right heart strain. CHEST WALL/AXILLA: No axillary or internal mammary lymphadenopathy. OSSEOUS STRUCTURES: No acute or suspicious osseous abnormality. UPPER ABDOMEN: Unremarkable. No reflux of contrast into the hepatic veins to suggest elevated right heart pressures. CT/CT angio chest PE protocol IMPRESSION: No pulmonary embolism or other acute intrathoracic abnormality. VTE: negative
[2021-03-13 02:15] VITALS: BP 125/73; PULSE 98; RESP 17; TEMP 36.8; O2SAT 98; BMI 41.5
--- NOTE | 2021-03-13 02:26 | ED_ITS ---
HPI - URI/Sore Throat General Chief Complaint: General Medical Stated Complaint: Sore throat Time Seen by Provider: 03/13/21 02:26 Source: patient Mode of arrival: ambulatory Limitations: no limitations History of Present Illness MD elicited complaint: cough, sore throat and other (chest wall pain) Pertinent past history: immunosuppression (has large b cell lymphoma had chemo recently) Onset (ago): day(s) (1) Consistency: constant Severity: moderate Description of mucous: clear Able to tolerate fluids by mouth: Yes Exacerbating factors: swallowing Relieving factors: nothing Context: recent chemotherapy Associated symptoms: sore throat, cough and chest pain Treatments prior to arrival: none Related Data Home Medications Medication Instructions Recorded Confirmed ondansetron 8 mg oral soluble film 8 mg PO Q8H PRN 02/20/21 02/22/21 prednisone 20 mg tablet 60 mg PO DAILY 02/20/21 02/22/21 Allergies Allergy/AdvReac Type Severity Reaction Status Date / Time No Known Allergies Allergy Verified 03/13/21 02:18 [No Known Allergies*] Review of Systems Review of Systems: Constitutional : No Weight loss, No Fever, No Chills ENT/Mouth : pos sore throat, No Rhinorrhea Eyes: No Eye Pain, No Swelling Cardiovascular : pos Chest Pain, no SOB, no Dyspnea on Exertion, No Orthopnea, No Edema, No Palpitations Respiratory : pos Cough, No Sputum Gastrointestinal : no Nausea, No Vomiting, No Diarrhea, No abdominal Pain, No Hematochezia, No Melena Genitourinary : No Dysuria, No Urinary Frequency Musculoskeletal : No joint pain, No Myalgias, No Joint Swelling Skin : No Skin Lesions, No rash Neuro : No Weakness, No Numbness, No Dizziness, No Headache Psych : No Anxiety/Panic, No Depression Heme/Lymph: No Bruising, No Lymphadenopathy Endocrine : No Polyuria, No Polydipsia All other systems reviewed and are negative PMFSH Past Medical History Attestation statement: The following information was validated with the patient. Medical History Adnexal mass History of COVID-19 (~04/2020) Large B-cell lymphoma (~12/2020) Mediastinal mass Obesity Surgical History History of biopsy (~12/2020) History of section (~03/2016) Family History Family History Paternal Aunt Diabetes Maternal Aunt Diabetes Mother Uterine cancer Social History Social History Alcohol intake: never Patient Tobacco Use Status: Never used Tobacco Advance Directives: No Patient : No Physical Exam Vital Signs: Vital Signs: Last Vital Signs Temp 98.3 F 03/13/21 02:15 Pulse 97 03/13/21 03:34 Resp 20 03/13/21 03:34 BP 106/70 03/13/21 03:34 Pulse Ox 99 03/13/21 03:34 Body Mass Index 41.5 Appearance: Alert. Oriented X3. No acute distress. Eyes: Pupils equal, round and reactive to light. ENT: Pharynx mild erythema no patches, uvula midline Neck: Normal inspection. Neck supple. CVS: Normal heart rate and rhythm. Pulses normal. Respiratory: No respiratory distress. Breath sounds normal. Abdomen: Soft and nontender. Skin: Skin warm and dry. Normal skin color. Normal skin turgor. Extremities: No lower extremity edema. No calf ttp Neuro: Oriented X 3. No motor deficit. No sensory deficit. Course Course Course Narrative: ddimer elevated CTA ordered no acute findings stable for DC MDM - URI/Sore Throat MDM Narrative Medical decision making narrative: 30 yo female with lymphoma undergoing chemo reports cough/sore throat and chest pain no other associated symptoms - has no signs of thrush on exam, chest pain is atypical but will obtain CXR, EKG, troponin (has been going on since noon) ddimer given malignancy. Strep test. Dispo per results and findings. Lab Data Result diagrams: 03/13/21 02:51 03/13/21 02:51 Labs: Lab Results 03/13/21 03/13/21 03/13/21 Range/Units 02:49 02:49 02:51 WBC 10.1 (4.8-10.8) X10*3/uL RBC 4.39 (4.20-5.50) X10*6/uL Hgb 10.8 L (12.0-16.0) g/dl Hct 33.8 L (37.0-47.0) % MCV 77.0 L (80.0-98.0) fL MCH 24.6 L (27.0-33.0) pg MCHC 32.0 (31.0-35.0) g/dl RDW 15.9 (11.0-16.0) % Plt Count 304 (160-400) X10*3/uL MPV 9.1 L (9.4-12.3) fL Immature Gran % (Auto) 0.7 H (0.0-0.4) % Neut % (Auto) 78.4 H (45-73) % Lymph % (Auto) 9.2 L (20-40) % Wood % (Auto) 10.6 (2-11) % Eos % (Auto) 0.7 (0-4) % Baso % (Auto) 0.4 (0-2) % Lymph # (Auto) 0.9 L (1.2-4.9) X10*3/uL Wood # (Auto) 1.1 (0.1-1.2) X10*3/uL Eos # (Auto) 0.1 (0.0-0.4) X10*3/uL Baso # (Auto) 0.0 (0.0-0.2) X10*3/uL Abs Immat Gran (auto) 0.07 H (0.00-0.03) X10*3/uL Absolute Neuts (auto) 7.9 (2.0-8.3) x10*3/uL Absolute Nucleated RBC 0.000 (0.0-0.012) X10*3/uL Nucleated RBC % (auto) 0.0 (0.0-0.2) /100WBC D-Dimer NG/ML Sodium (135-145) mmol/L Potassium (3.3-5.1) mmol/L Chloride (96-108) mmol/L Carbon Dioxide (22-29) mmol/L Anion Gap (12-20) BUN (9-16) mg/dL Creatinine (0.5-1.4) mg/dL Estim Creat Clear Calc Estimated GFR Random Glucose (60-115) mg/dL Calcium (8.4-10.2) mg/dL Troponin I High Sens (<3.5-17.0) ng/L Urine Test (NEGATIVE) COVID-19 (MARISSA) Negative (Negative) COVID-19 Clin Com See Note S. pyogenes GrpA RONALD Negative (Negative) 03/13/21 03/13/21 03/13/21 Range/Units 02:51 02:51 02:51 WBC (4.8-10.8) X10*3/uL RBC (4.20-5.50) X10*6/uL Hgb (12.0-16.0) g/dl Hct (37.0-47.0) % MCV (80.0-98.0) fL MCH (27.0-33.0) pg MCHC (31.0-35.0) g/dl RDW (11.0-16.0) % Plt Count (160-400) X10*3/uL MPV (9.4-12.3) fL Immature Gran % (Auto) (0.0-0.4) % Neut % (Auto) (45-73) % Lymph % (Auto) (20-40) % Wood % (Auto) (2-11) % Eos % (Auto) (0-4) % Baso % (Auto) (0-2) % Lymph # (Auto) (1.2-4.9) X10*3/uL Wood # (Auto) (0.1-1.2) X10*3/uL Eos # (Auto) (0.0-0.4) X10*3/uL Baso # (Auto) (0.0-0.2) X10*3/uL Abs Immat Gran (auto) (0.00-0.03) X10*3/uL Absolute Neuts (auto) (2.0-8.3) x10*3/uL Absolute Nucleated RBC (0.0-0.012) X10*3/uL Nucleated RBC % (auto) (0.0-0.2) /100WBC D-Dimer 388 NG/ML Sodium 137 (135-145) mmol/L Potassium 3.7 (3.3-5.1) mmol/L Chloride 106 (96-108) mmol/L Carbon Dioxide 24 (22-29) mmol/L Anion Gap 11 L (12-20) BUN 9 (9-16) mg/dL Creatinine 0.68 (0.5-1.4) mg/dL Estim Creat Clear Calc 133.4 Estimated GFR > 60 Random Glucose 118 H (60-115) mg/dL Calcium 8.8 (8.4-10.2) mg/dL Troponin I High Sens < 3.5 (<3.5-17.0) ng/L Urine Test (NEGATIVE) COVID-19 (MARISSA) (Negative) COVID-19 Clin Com S. pyogenes GrpA RONALD (Negative) 03/13/21 Range/Units 03:32 WBC (4.8-10.8) X10*3/uL RBC (4.20-5.50) X10*6/uL Hgb (12.0-16.0) g/dl Hct (37.0-47.0) % MCV (80.0-98.0) fL MCH (27.0-33.0) pg MCHC (31.0-35.0) g/dl RDW (11.0-16.0) % Plt Count (160-400) X10*3/uL MPV (9.4-12.3) fL Immature Gran % (Auto) (0.0-0.4) % Neut % (Auto) (45-73) % Lymph % (Auto) (20-40) % Wood % (Auto) (2-11) % Eos % (Auto) (0-4) % Baso % (Auto) (0-2) % Lymph # (Auto) (1.2-4.9) X10*3/uL Wood # (Auto) (0.1-1.2) X10*3/uL Eos # (Auto) (0.0-0.4) X10*3/uL Baso # (Auto) (0.0-0.2) X10*3/uL Abs Immat Gran (auto) (0.00-0.03) X10*3/uL Absolute Neuts (auto) (2.0-8.3) x10*3/uL Absolute Nucleated RBC (0.0-0.012) X10*3/uL Nucleated RBC % (auto) (0.0-0.2) /100WBC D-Dimer NG/ML Sodium (135-145) mmol/L Potassium (3.3-5.1) mmol/L Chloride (96-108) mmol/L Carbon Dioxide (22-29) mmol/L Anion Gap (12-20) BUN (9-16) mg/dL Creatinine (0.5-1.4) mg/dL Estim Creat Clear Calc Estimated GFR Random Glucose (60-115) mg/dL Calcium (8.4-10.2) mg/dL Troponin I High Sens (<3.5-17.0) ng/L Urine Test NEGATIVE (NEGATIVE) COVID-19 (MARISSA) (Negative) COVID-19 Clin Com S. pyogenes GrpA RONALD (Negative) ECG Data Attestation: I personally reviewed and interpreted this ECG as follows: ECG interpretation date: 03/13/21 ECG interpretation time: 02:54 Interpretation: Rate: 92 Rhythm: NSR Raymond: normal Normal P waves. Normal INES. Normal QRS complex. ST T wave : no SPENCER, nonspecific qTC: normal prior studies: no acute ischemia The study has been interpreted contemporaneously by me. . Discharge Plan Discharge Clinical Impression: Pharyngitis Qualifiers: Pharyngitis/tonsillitis etiology: unspecified etiology Qualified Code(s): J02.9 - Acute pharyngitis, unspecified Patient Disposition: Home, Self-Care Instructions: Pharyngitis (ED) Additional Instructions: return to ED for any worsening symptoms or concerns NEGATIVE FOR COVID, NEGATIVE FOR STREP Prescriptions: No Action prednisone 20 mg Tablet 60 mg PO DAILY RF: 0 ondansetron 8 mg Film 8 mg PO Q8H PRN (Reason: Nausea And Vomiting) RF: 0 Referrals: Physician,Unknown J [Primary Care Provider] - 2 days (IF NOT BETTER) Stand Alone Forms: Work/School Release Print Language: Japanese
--- NOTE | 2021-03-13 02:32 | ECG_ITS ---
Test Reason : CP Blood Pressure : / mmHG Vent. Rate : 092 BPM Atrial Rate : 092 BPM P-R Int : 170 ms QRS Dur : 072 ms QT Int : 368 ms P-R-T Axes : 045 004 007 degrees QTc Int : 455 ms Normal sinus rhythm Nonspecific T wave abnormality Abnormal ECG No previous ECGs available Referred By: Afia Lazaro Electronically Signed By:DAISY RICHEY MD
[2021-03-13 02:58] LABS: Basophils Percent Auto 0.4 % (0-2); Eosinophils Absolute Auto 0.1 X10*3/uL (0.0-0.4); Eosinophils Percent Auto 0.7 % (0-4); Hematocrit 33.8 % (37.0-47.0); Hemoglobin 10.8 g/dl (12.0-16.0); Imm Gran Abs Auto 0.07 X10*3/uL (0.00-0.03); Imm Gran Pct Auto 0.7 % (0.0-0.4); Lymphocytes Absolute Auto 0.9 X10*3/uL (1.2-4.9); Lymphocytes Percent Auto 9.2 % (20-40); MANUAL DIFF FLAG NO; Mean Corpuscular Hemoglobin 24.6 pg (27.0-33.0); Mean Platelet Volume 9.1 fL (9.4-12.3); Monocytes Absolute Auto 1.1 X10*3/uL (0.1-1.2); Monocytes Percent Auto 10.6 % (2-11); Neutrophils Absolute Auto 7.9 x10*3/uL (2.0-8.3); Neutrophils Percent Auto 78.4 % (45-73); Platelet Count 304 X10*3/uL (160-400); Red Blood Count 4.39 X10*6/uL (4.20-5.50); Red Cell Distribution Width 15.9 % (11.0-16.0); White Blood Count 10.1 X10*3/uL (4.8-10.8)
[2021-03-13 03:03] LABS: IDNOW Serial# 9DD0AD1C; Strep A Nucleic Acid Negative (Negative)
[2021-03-13 03:07] LABS: D Dimer 388 NG/ML
[2021-03-13 03:13] LABS: COVID-19 Test Negative (Negative)
[2021-03-13 03:16] LABS: Anion Gap 11 (12-20); Blood Urea Nitrogen 9 mg/dL (9-16); Calcium 8.8 mg/dL (8.4-10.2); Carbon Dioxide 24 mmol/L (22-29); Chloride 106 mmol/L (96-108); Creatinine Clr Calc Pharmacy 133.4; Estimated Glomerular Filt Rate > 60; Glucose Random 118 mg/dL (60-115); Potassium 3.7 mmol/L (3.3-5.1); Sodium 137 mmol/L (135-145)
[2021-03-13 03:21] LABS: Troponin-I High Sensitivity < 3.5 ng/L (<3.5-17.0)
[2021-03-13 03:34] VITALS: BP 106/70; PULSE 97; RESP 20; O2SAT 99
[2021-03-13 03:45] LABS: UPreg QC Valid YES; Urine Pregnancy NEGATIVE (NEGATIVE)
[2021-03-13] MEDS: iohexoL 350 MG/ML 100 ML INFUS..BTL IV (04:25)
[2021-03-13 04:56] VITALS: BP 108/64; PULSE 96; RESP 20; O2SAT 100
[2021-03-15 08:38] LABS: Alanine Aminotransferase 41 U/L (0-31); Albumin Level 4.1 g/dL (3.5-5.0); Alkaline Phosphatase 69 U/L (39-117); Aspartate Amino Transferase 17 U/L (5-31); Bilirubin Direct < 0.2 mg/dL (0.0-0.5); Bilirubin Total < 0.2 mg/dL (0.0-1.0); Total Protein 6.5 g/dL (6.5-8.0)
== END 2021-03-13 05:08 | disposition home or self-care (01) ==
PROVIDERS: Emergency Provider Emergency Medicine
DX: J02.9 Acute pharyngitis, unspecified (principal); C83.30 Diffuse large B-cell lymphoma, unspecified site; Z20.822 Contact with and (suspected) exposure to COVID-19
CPT/HCPCS: 36415; 71275; 80048; 80076; 81025; 84484; 85025; 85379; 87635; 87651; 93005; 99284; Q9967

== ENCOUNTER 2021-03-18 15:19 | Outpatient (REF) | payer MEDICAID, SELFPAY | END 2021-03-18 15:20 | disposition home or self-care (01) | LOC: HO.RADIR 15:19 | PROVIDERS: Visit Provider Internal Medicine Medical Oncology | DX: Z13.89 Encounter for screening for other disorder (principal) ==

== ENCOUNTER → 2021-03-20 15:42 | Outpatient (BNVA) | payer MEDICAID, SELFPAY | PROVIDERS: Visit Provider Obstetrics & Gynecology ==

== ENCOUNTER 2021-03-27 12:46 | Outpatient (REF) | payer MEDICAID, SELFPAY ==
--- NOTE | ~2021-03-27 | XR_ITS ---
EXAMINATION: XR CHEST CLINICAL INFORMATION: Cough COMPARISON: CTA March 2010 chest x-ray December 2020 TECHNIQUE: 2 views of the chest were obtained. FINDINGS: Central venous catheter noted with the tip in the region of SVC right atrial junction. Previously noted left mediastinal mass no longer definitively visualized. Cardiomediastinal silhouette appears normal. Lungs clear. Bone and soft tissues unremarkable XR/XR chest 2V IMPRESSION: No acute disease. Previously noted mediastinal mass not clearly visualized.. However most recent CT 03/13/2021 suggests persistent albeit smaller mass but less conspicuous than previous.
[2021-03-27 14:26] LABS: Monotest Negative (Negative)
== END 2021-03-27 12:47 | disposition home or self-care (01) ==
LOC: HO.LAB 12:46
PROVIDERS: PCP Emergency Medicine; Visit Provider Emergency Medicine
DX: J02.9 Acute pharyngitis, unspecified (principal); R05.9 Cough, unspecified
CPT/HCPCS: 36415; 71046; 86308

== ENCOUNTER 2021-04-23 08:46 | Outpatient (REF) | payer MEDICAID, SELFPAY ==
--- NOTE | ~2021-04-23 | PE_ITS ---
EXAMINATION: Fluorine-18 FDG PET/CT Scan CLINICAL INDICATION: Subsequent treatment management. Large B-cell lymphoma, restaging. PROCEDURE: 53 minutes following the intravenous administration of 14.6 mCi of fluorine 18 FDG, images from the base of the skull to the mid thighs were obtained using a combined PET/CT scanner with CT scan based attenuation correction. No oral contrast was administered. No intravenous contrast was administered. Transverse, coronal, sagittal, and volume reconstruction projections were obtained. The patient's blood glucose as determined by a finger stick, was 101 mg/dl immediately prior to injection. Total CT exam dose-length product 1471.48 mGy-cm * These CT images were obtained using dose optimization techniques as appropriate, variously including the following: Automated exposure control * Adjustment of mA and/or kV according to patient size (this includes techniques or standardized protocols for targeted exams where dose is matched to indication/reason for exam; i.e. extremities or head) * Use of iterative reconstruction technique COMPARISON: The previous PET CT scan dated 02/05/2021 is available for comparison. CT angiogram of the chest dated 03/13/2021 is also available for comparison. FINDINGS: (Slice numbers described in this report are numbered superiorly to inferiorly with slice #1 in the head) NECK AND VISUALIZED HEAD: No foci of abnormal FDG activity are noted. The distribution of FDG activity is physiological. There is no cervical lymphadenopathy. THORAX: There is been complete resolution of the left anterior mediastinal mass which was intensely FDG avid on the prior 02/05/[address] scan. There is probably minimal soft tissue thickening in this region on the current study, but there is no abnormal FDG activity now present. No pulmonary nodules are visualized. There is no pleural or pericardial fluid or pneumothorax. There is no mediastinal, supraclavicular, or axillary lymphadenopathy. A right-sided chest port with internal jugular catheter terminating in the superior vena cava is noted, and this was not present on the 02/05/2021 study. ABDOMEN AND PELVIS: No foci of abnormal FDG activity are present in the abdomen or pelvis. The liver,, gallbladder, spleen, kidneys, adrenal glands and pancreas appear unremarkable. The left ovary is prominent and abuts the left side of the uterus, from which it is inseparable and now measures 3.3 x 2.6 cm in largest transverse dimensions and approximately 3.6 cm cephalocaudad. On prior studies, CT dated 12/05/2020 and the prior PET CT scan dated 02/05/2021, this was suspected to be a left adnexal mass, but MRI subsequently performed 03/05/2021 showed this to be a prominent left ovary. It is not significantly changed in size or FDG avidity since the prior 02/05/[address] scan. There are no foci of abnormal there is no retroperitoneal, mesenteric, pelvic or inguinal lymphadenopathy. MUSCULOSKELETAL: The bone marrow FDG activity is slightly prominent, suggesting Neulasta effect, but this is now only slightly more prominent than on the prior 02/05/2021 study. There are no foci of more prominent FDG activity at any site in the osseous structures. There is a stable dense calcification in the right side of the uterus. There are no suspicious sclerotic or lytic lesions visualized. VASCULAR: No significant abnormalities are present. PET/PET CT fusion skull to thigh IMPRESSION: 1. Complete resolution of FDG avidity previously demonstrated in the large left-sided mediastinal mass on 02/05/2021. Very minimal soft tissue thickening persists in this region, but there is no abnormal FDG activity. Using the 5 point Deauville scale, this patient would be classified as a Deauville score of 1. 2. A suspected left adnexal mass described on the 02/05/[address] scan and the CT scan of the abdomen and pelvis dated 12/05/2020 has been demonstrated to be the left ovary on a subsequent MRI of the pelvis dated 03/05/2021. This appears unchanged on the current study. 3. No additional abnormalities suspicious for metastatic or other malignant lesions are noted.
== END 2021-04-23 08:47 | disposition home or self-care (01) ==
LOC: HO.PET 08:46
PROVIDERS: Visit Provider Internal Medicine Medical Oncology
DX: Z13.89 Encounter for screening for other disorder (principal)

== ENCOUNTER 2021-06-18 09:10 | Outpatient (REF) | payer MEDICAID, SELFPAY ==
--- NOTE | ~2021-06-18 | PE_ITS ---
EXAMINATION: Fluorine-18 FDG PET/CT Scan CLINICAL INDICATION: Subsequent treatment management. 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 Restaging. PROCEDURE: 73 minutes following the intravenous administration of 14.9 mCi of fluorine 18 FDG, images from the base of the skull to the mid thighs were obtained using a combined PET/CT scanner with CT scan based attenuation correction. No oral contrast was administered. No intravenous contrast was administered. Transverse, coronal, sagittal, and volume reconstruction projections were obtained. The patient's blood glucose as determined by a finger stick, was 105 mg/dl immediately prior to injection. Total CT exam dose-length product 1134.56 mGy-cm * These CT images were obtained using dose optimization techniques as appropriate, variously including the following: Automated exposure control * Adjustment of mA and/or kV according to patient size (this includes techniques or standardized protocols for targeted exams where dose is matched to indication/reason for exam; i.e. extremities or head) * Use of iterative reconstruction technique COMPARISON: Prior PET CT scans dated 04/23/2021 and 02/05/2021 are available for comparison. FINDINGS: (Slice numbers described in this report are numbered superiorly to inferiorly with slice #1 in the head) NECK AND VISUALIZED HEAD: No foci of abnormal FDG activity are noted. The distribution of FDG activity is physiological. There is no cervical lymphadenopathy. THORAX: There are no foci of abnormal FDG activity. No pulmonary nodules are visualized. There is no pleural or pericardial fluid or pneumothorax. There is no mediastinal, supraclavicular, or axillary lymphadenopathy. There continues to be complete resolution of the intensely FDG avid anterior mediastinal mass present on the baseline 02/05/[address] scan. A right-sided chest port with internal jugular catheter terminating in the superior vena cava is noted. ABDOMEN AND PELVIS: No foci of abnormal FDG activity are present in the abdomen or pelvis. There is mild FDG activity in the gastrointestinal tract, likely physiological. Diverticulosis without evidence of diverticulitis is noted noted, predominantly in the rectosigmoid colon in the The liver, gallbladder, spleen comment kidneys, adrenal glands and pancreas appear unremarkable. There is no retroperitoneal, mesenteric, pelvic or inguinal lymphadenopathy. There is a free-floating 3.0 x 2.4 cm densely calcified structure in the right paramidline posterior pelvis anterior to the rectosigmoid colon at the level of the acetabular roof. This has been visualized previously on prior studies dating back to the 12/05/2020 CT scan of the abdomen and pelvis when this was an adnexal structure abutting the right side of the uterus. This likely represents a calcified fibroid that has the chest show the uterus. Shows no abnormal FDG activity and is likely benign. MUSCULOSKELETAL: There is diffusely increased bone marrow activity, consistent with recent bone marrow stimulating chemotherapy and this is now slightly more intense diffusely compared to the 04/23/2021 study. There is no focal component. There are no suspicious sclerotic or lytic lesions visualized. VASCULAR: No significant abnormalities are present. PET/PET CT fusion skull to thigh IMPRESSION: 1. There continues to be complete resolution of the intensely FDG avid mediastinal mass visualized on the baseline 02/05/[address] scan. Using the 5 point Deauville scale, this patient would be classified as a Deauville score of 1. 2. A densely calcified focus previously visualized in the right adnexal region adherent to the right side of the uterus now appears to be floating freely anterior to the rectosigmoid colon in the pelvis at the level of the acetabular roof. This is likely a benign lesion, probably a calcified fibroid that has detached from the uterus.
== END 2021-06-18 09:11 | disposition home or self-care (01) ==
LOC: HO.PET 09:10
PROVIDERS: Visit Provider Internal Medicine Medical Oncology
DX: Z13.89 Encounter for screening for other disorder (principal)

== ENCOUNTER → 2021-07-04 12:49 | Outpatient (REF) | payer MEDICAID, SELFPAY ==
--- NOTE | 2021-07-04 12:57 | CA_ITS ---
Transthoracic Echocardiogram Patient (Last, First, Middle): Germania Smith, Gender: Female Date of : 1990 Age: 31 Procedure Date: 07/04/2021 Procedure Type: Transthoracic Echocardiogram Location: OP Height: 154.94 cm Weight: 102.06 kg BSA: 1.99 m2 Heart Rate: bpm BP: 105 / 64 mmHg Hydraulic Spinner: JENNIFER Referring MD: Sheila Galvan MD Waterproofing Mixer: Juan Carlos Arevalo MD Symptoms: To assess ejection fraction on Adriamycin Study Quality: Fair ECG Rhythm: Sinus Conclusions: - Normal biventricular function Findings Left Ventricle Normal left ventricular size, thickness, and systolic function. The visually estimated ejection fraction is between 60-65%. Spectral Doppler is indicative of a normal filling pattern. peak global longitudinal endocardial strain is -19.4%, within normal limits Right Ventricle Normal right ventricular cavity size and systolic function. Pericardium/Pleural There is no evidence of pericardial effusion. Prior Study Comparison No significant change compared to prior study dated: 02/13/2021. Measurements 2D Linear Measurements IVSd: 0.90 0.6-0.9/0.6-1.0 cm LVIDd: 4.46 3.9-5.3/4.2-5.9 cm LVIDd Index: 2.24 2.4-3.2/2.2-3.1 cm/m2 LVIDs: 2.95 2.0-3.6 cm LVPWd: 0.94 0.7-1.1 cm LV Mass: 167.91 67-162/88-224 g LV Mass Index: 84.38 43-95/49-115 g/m2 2D Systolic Function EF 4C: 62.90 >55% EF 2C: 64.10 >55% EF BiP: 64.10 >55% Mitral Valve MV Pk E: 0.97 MV PK A: 0.82 MV Decel Time: 231.00 E/A: 1.20 E'Lateral: 15.00 E'Medial: 12.40 E/E' Med: 7.80 E/E' Lat: 6.40 PHT: 68.00 MVA PHT: 3.24 Decel [place]: 4.17 Diastolic Function MV Pk E: 0.97 MV Pk A: 0.82 E/A: 1.20 E'Medial: 12.40 E/E' Med: 7.80 E' Laterial: 15.00 E/E' Lat: 6.40 Updated in Other Vendor System with Status of Final Juan Carlos Arevalo MD electronically signed on 07/04/2021 4:08:01 PM with status of Final
== END ==
LOC: HO.CARD 12:49
PROVIDERS: PCP Registered Nurse Community Health; Visit Provider Internal Medicine Medical Oncology
DX: C85.22 Mediastinal (thymic) large B-cell lymphoma, intrathoracic lymph nodes (principal)
CPT/HCPCS: 93308; 93356

== ENCOUNTER 2021-10-15 13:40 | Outpatient (REF) | payer MEDICAID, SELFPAY ==
--- NOTE | ~2021-10-15 | PE_ITS ---
EXAMINATION: CO PET/CT WHOLE BODY CLINICAL INFORMATION: Evaluate for lymphoma. COMPARISON: Comparison is made to previous dated 06/18/2021. TECHNIQUE: Dedicated coincidence imaging from the base of the skull to the thighs. 22 mCi F-[address] examination was performed using dose optimization techniques as appropriate, variously including the following: *Automated exposure control. *Adjustment of mA and/or kV according to patient size (this includes techniques or standardized protocols for targeted exams where dose is matched to indication/reason for exam; i.e. extremities or head). *Use of iterative reconstruction technique. TOTAL EXAM DLP: 1140.80 mGy-cm FINDINGS: NECK: The neck activity is felt to be within normal limits. CHEST: In the mediastinum, there is some increased soft tissue fullness noted on image 74 of 276. There is some mild uptake here; 4.4 SUV max. Tumor cannot be excluded. Otherwise, uptake is within normal limits. LUNGS: In the lungs, there is no suspicious focus. UPPER ABDOMEN: The liver uptake is within normal limits. Splenic uptake is within normal limits. Normal renal activity. Normal low-level bowel activity. PELVIS: No suspicious focus of activity in the pelvis. OSSEOUS STRUCTURES: Review of the bone windows shows overall mild increase uptake within the bones which may be related to therapy. Similar to previous. PET/PET CT fusion skull to thigh IMPRESSION: 1. Findings are described above. There is some increasing activity associated with some increased soft tissue in the anterior mediastinum to the right of midline adjacent to the aorta. I cannot exclude and must consider an element of recurrent disease here. 2. Exam otherwise as stated is unremarkable.
== END 2021-10-15 13:41 | disposition home or self-care (01) ==
LOC: HO.PET 13:40
PROVIDERS: Visit Provider Internal Medicine Medical Oncology
DX: Z13.89 Encounter for screening for other disorder (principal)

== ENCOUNTER 2021-11-11 15:52 | Outpatient (REF) | payer MEDICAID, SELFPAY ==
--- NOTE | ~2021-11-11 | CT_ITS ---
EXAMINATION: CT CHEST WITH CONTRAST CLINICAL INFORMATION: Lymphoma. Follow-up increased uptake on PET CT scan COMPARISON: Previous PET/CT scan most recent October 2021 and chest CTA March 2021 TECHNIQUE: Multidetector volumetric CT imaging of the chest was obtained after the administration of 65 mL of Omnipaque 350 intravenous contrast without immediate adverse reactions. Axial MIP volume rendering provided. Sagittal and coronal reformatted images were obtained. This CT examination was performed using dose optimization techniques as appropriate, variously including the following: *Automated exposure control *Adjustment of mA and/or kV according to patient size (this includes techniques or standardized protocols for targeted exams where dose is matched to indication/reason for exam; i.e. extremities or head) *Use of iterative reconstruction technique DLP: 180 mGy-cm FINDINGS: LUNGS: The lungs are clear. MEDIASTINUM: There is increased soft tissue seen in the right anterior superior mediastinum. This measures 1.4 x 2.6 cm axial image 45 series 7. This is similar to recent PET CT October 2021. This is new from older chest CT March 2021. The previously identified increased soft tissue in the left anterior superior mediastinum on March 2021 exam is no longer seen. No other evidence of mediastinal adenopathy. No hilar adenopathy. Normal heart size. No pericardial effusion. Normal caliber thoracic aorta. Normal-appearing thyroid gland. PLEURA: There is no pleural effusion. No pleural mass or thickening. AXILLA: No axillary or supraclavicular lymphadenopathy. No chest wall mass. Right jugular port with tip projecting over the SVC. UPPER ABDOMEN: Unremarkable OSSEOUS STRUCTURES: Unremarkable. CT/CT chest w con IMPRESSION: Increased soft tissue in the right anterior superior mediastinum similar to recent PET CT October 2021 and new from previous chest CTA March 2021. Previously identified increased soft tissue in the left anterior superior mediastinum is no longer seen. Fleischner guidelines were followed.
[2021-11-11] MEDS: iohexoL 350 MG/ML 100 ML INFUS..BTL IV (16:31)
== END 2021-11-11 15:53 | disposition home or self-care (01) ==
LOC: HO.CT 15:52
PROVIDERS: Visit Provider Internal Medicine Medical Oncology
DX: C85.10 Unspecified B-cell lymphoma, unspecified site (principal)
CPT/HCPCS: 71260; Q9967

== ENCOUNTER → 2021-12-20 10:57 | Outpatient (BNVA) | payer MEDICAID, SELFPAY | PROVIDERS: PCP Registered Nurse Community Health; Visit Provider Surgery | DX: J98.59 Other diseases of mediastinum, not elsewhere classified (principal); C85.10 Unspecified B-cell lymphoma, unspecified site | CPT/HCPCS: 99212 ==

== ENCOUNTER 2022-07-09 15:40 | Outpatient (REF) | payer MEDICAID, SELFPAY ==
--- NOTE | ~2022-07-09 | CT_ITS ---
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 COMPARISON: None available. TECHNIQUE: Multidetector volumetric CT imaging of the chest was obtained after the administration of 65 mL of Omnipaque 350 intravenous contrast without immediate adverse reactions. Axial MIP volume rendering provided. Sagittal and coronal reformatted images were obtained. This CT examination was performed using dose optimization techniques as appropriate, variously including the following: *Automated exposure control *Adjustment of mA and/or kV according to patient size (this includes techniques or standardized protocols for targeted exams where dose is matched to indication/reason for exam; i.e. extremities or head) *Use of iterative reconstruction technique DLP: 353 mGy-cm FINDINGS: RECORD FILING CLERK: Hypoexpanded lungs. LUNGS: The lungs are clear with no evidence of inflammation or nodules. MEDIASTINUM: There is a small anterior mediastinal soft tissue density measuring 1.7 x 0.9 cm. Previously measured 2.6 x 1.4 cm and is smaller. The mediastinal vascular structures are normal. Heart size is normal. There is a right central venous catheter with its tip in mid to distal SVC. Abnormal mediastinal lymph nodes. PLEURA: There is no pleural effusion. No pleural mass or thickening. AXILLA: No lymphadenopathy. UPPER ABDOMEN: Visualized liver, spleen, pancreas and bilateral adrenal glands are unremarkable. No radiopaque gallstone seen. OSSEOUS STRUCTURES: No aggressive lytic or sclerotic process seen. CT/CT chest w IV con IMPRESSION: 1. No acute process seen in the chest. 2. Anterior mediastinal soft tissue density has decreased in size. 3. Right central venous catheter with its tip in mid to distal SVC. Fleischner guidelines were followed.
[2022-07-09] MEDS: iohexoL 350 MG/ML 100 ML INFUS..BTL 65 ML IV (16:09)
== END 2022-07-09 15:41 | disposition home or self-care (01) ==
LOC: HO.CT 15:40
PROVIDERS: PCP Internal Medicine Medical Oncology; Visit Provider Internal Medicine Medical Oncology
DX: C85.22 Mediastinal (thymic) large B-cell lymphoma, intrathoracic lymph nodes (principal)
CPT/HCPCS: 71260; Q9967

== ENCOUNTER 2022-07-24 08:43 | Day surgery (SDC) | payer MEDICAID, SELFPAY ==
--- NOTE | ~2022-07-24 | IR_ITS ---
EXAMINATION: IR INTERNAL JUGULAR PORT CATHETER REMOVAL, RIGHT CLINICAL INFORMATION: Patient has completed chemotherapy for lymphoma. COMPARISON: 02/08/2021. TECHNIQUE: Removal of right internal jugular port catheter. FINDINGS: Informed consent was obtained from the patient prior to the procedure. During this process, the procedure and potential alternatives were explained, along with the intended outcome and benefits. The risks of the procedure, as well as the risk of not doing the procedure, were discussed. The patient was given the opportunity to ask questions regarding the procedure and appeared competent to make medical decisions. A signed consent form which documents this discussion was placed in the medical record. All elements of maximal sterile barrier technique followed including use of cap, mask, sterile gown, sterile gloves, a sterile full body drape and hand hygiene. Also followed skin preparation with 2% chlorhexidine for cutaneous antisepsis, and sterile ultrasound preparation with sterile gel and probe cover when applicable. A scalpel incision was made just superior to the port after lidocaine administration and with patient under conscious sedation. The port and catheter were then blunt dissected out in entirety. The port pocket was closed with 4-0 running absorbable suture. Tissue adhesive was then placed over the incision site. Patient tolerated procedure without difficulty. FLUOROSCOPY TIME: 0.1 DAP: 5 Gy-cm2 CONSCIOUS SEDATION: The patient received intravenous conscious sedation under my direct supervision. A registered nurse monitored the patient and the patient's vital signs throughout the procedure. The total sedation time was 35 minutes. A total of 1 mg of Versed and 25 mcg fentanyl was given for good effect. IR/IR cvc remove tunnel w prt/etiquette teacher IMPRESSION: Removal of right internal jugular port catheter has described.
[2022-07-24 09:05] VITALS: BMI 43.4
[2022-07-24 09:07] LABS: MANUAL DIFF FLAG NO
[2022-07-24 09:10] LABS: Basophils Percent Auto 0.4 % (0-2); Eosinophils Absolute Auto 0.1 X10*3/uL (0.0-0.4); Eosinophils Percent Auto 1.5 % (0-4); Hematocrit 35.9 % (37.0-47.0); Imm Gran Abs Auto 0.02 X10*3/uL (0.00-0.03); Imm Gran Pct Auto 0.3 % (0.0-0.4); Lymphocytes Absolute Auto 1.4 X10*3/uL (1.2-4.9); Lymphocytes Percent Auto 17.4 % (20-40); Mean Corpuscular HGB Conc 33.4 g/dl (31.0-35.0); Mean Corpuscular Hemoglobin 26.8 pg (27.0-33.0); Mean Corpuscular Volume 80.1 fL (80.0-98.0); Mean Platelet Volume 8.6 fL (9.4-12.3); Monocytes Absolute Auto 0.5 X10*3/uL (0.1-1.2); Monocytes Percent Auto 6.9 % (2-11); Neutrophils Absolute Auto 5.8 x10*3/uL (2.0-8.3); Neutrophils Percent Auto 73.5 % (45-73); Platelet Count 299 X10*3/uL (160-400); Red Blood Count 4.48 X10*6/uL (4.20-5.50); White Blood Count 7.9 X10*3/uL (4.8-10.8)
[2022-07-24 09:16] LABS: UPreg QC Valid YES; Urine Pregnancy NEGATIVE (NEGATIVE)
[2022-07-24 09:18] LABS: INTERNATIONAL NORM RATIO 0.9 (0.9-1.1); Prothrombin Time 10.7 SEC (10.0-13.1)
[2022-07-24 09:20] LABS: Partial Thromboplastin Time 35.9 SEC (26.0-36.4)
[2022-07-24] MEDS: Lidocaine HCl 1 % MPF 30 ML VIAL SUBCUT (12:00)
[2022-07-24 12:45] VITALS: BP 97/44; PULSE 65; RESP 16; TEMP 36.7; O2SAT 98
[2022-07-24 13:00] VITALS: BP 102/64; PULSE 78; RESP 16; O2SAT 98
[2022-07-24 13:15] VITALS: BP 112/65; PULSE 79; RESP 16; O2SAT 98
[2022-07-24 13:30] VITALS: BP 116/60; PULSE 87; RESP 16; O2SAT 98
== END 2022-07-24 13:42 | disposition home or self-care (01) ==
PROVIDERS: PCP Registered Nurse; Visit Provider Radiology Diagnostic Radiology
PROC: (CPT 36590; principal; 2022-07-24 10:30)
DX: Z45.2 Encounter for adjustment and management of vascular access device (principal); C85.20 Mediastinal (thymic) large B-cell lymphoma, unspecified site; E66.01 Morbid (severe) obesity due to excess calories; Z68.41 Body mass index [BMI] 40.0-44.9, adult; Z92.21 Personal history of antineoplastic chemotherapy; Z86.16 Personal history of COVID-19
CPT/HCPCS: 36415; 36590; 81025; 85025; 85610; 85730; 99152; 99153; J2250; J3010

== ENCOUNTER 2023-04-08 08:17 | Outpatient (REF) | payer MEDICAID, SELFPAY ==
--- NOTE | ~2023-04-08 | CT_ITS ---
EXAMINATION: CT CHEST WITH CONTRAST CLINICAL INFORMATION: Follow-up lymphoma/thymoma. COMPARISON: Prior chest CT examinations, most recently 07/09/2022; PET/CT dated 10/15/2021. TECHNIQUE: Multidetector volumetric CT imaging of the chest was obtained after the administration of 50 mL of Omnipaque 350 intravenous contrast without immediate adverse reactions. Axial MIP volume rendering provided. Sagittal and coronal reformatted images were obtained. This CT examination was performed using dose optimization techniques as appropriate, variously including the following: *Automated exposure control *Adjustment of mA and/or kV according to patient size (this includes techniques or standardized protocols for targeted exams where dose is matched to indication/reason for exam; i.e. extremities or head) *Use of iterative reconstruction technique DLP: 185 mGy-cm FINDINGS: RIDDLER OPERATOR: The lungs are symmetrically well-expanded and grossly clear. LUNGS: The lungs are clear, with no evidence of inflammation or nodules. MEDIASTINUM: The thyroid is unremarkable. Within the anterior mediastinum (3:14), a 1.9 x 1.7 cm triangular nodule is seen. This appears relatively stable from 07/09/2022 when measured similarly, but it appears increased from earlier examinations. There is no sizable mediastinal or hilar lymphadenopathy. No thoracic aortic aneurysm or dissection is seen. No coronary artery atherosclerotic calcification is seen. PLEURA: There is no pleural effusion. No pleural mass or thickening. AXILLA: No lymphadenopathy. UPPER ABDOMEN: Unremarkable OSSEOUS STRUCTURES: Unremarkable. CT/CT chest w IV con IMPRESSION: A previously noted anterior mediastinal soft tissue mass appears relatively stable from 07/09/2022 and has increased from earlier examinations. No new thoracic nodule, mass, lymphadenopathy or effusion is seen. No aggressive osseous lesion is seen. Fleischner guidelines were followed.
[2023-04-08] MEDS: iohexoL 350 MG/ML 100 ML INFUS..BTL IV (09:12)
[2023-04-08 11:33] LABS: GFR POC 60
== END 2023-04-08 08:18 | disposition home or self-care (01) ==
LOC: HO.CT 08:17
PROVIDERS: PCP Registered Nurse; Visit Provider Internal Medicine Medical Oncology
DX: C85.22 Mediastinal (thymic) large B-cell lymphoma, intrathoracic lymph nodes (principal)
CPT/HCPCS: 71260; 82565; Q9967

== ENCOUNTER 2024-02-05 18:04 | Outpatient (REF) | payer MEDICAID, SELFPAY ==
[2024-02-05 18:32] LABS: Appearance Urine Clear; Color Urine Yellow; Glucose Urine UA Negative (Negative); Leukocyte Esterase Urine Negative (Negative); Nitrite Urine Negative (Negative); PH 6.5 (5.0-9.0); Urine Blood Negative (Negative); Urine Ketones Negative (Negative); Urine Protein Negative (Neg-Trace)
== END 2024-02-05 18:05 | disposition home or self-care (01) ==
LOC: HO.CHCLNP 18:04
PROVIDERS: Visit Provider Nurse Practitioner
DX: R82.90 Unspecified abnormal findings in urine (principal)
CPT/HCPCS: 81003

== ENCOUNTER 2024-02-27 10:26 | Outpatient (REF) | payer MEDICAID, SELFPAY ==
[2024-02-27 11:41] LABS: Estimated Average Glucose 103 mg/dL; Hemoglobin A1C 101.2873 umol/L; Hemoglobin A1c % 5.2 % (<6.0); Total Hemoglobin (HGBA1C) 3035.5866 umol/L
[2024-02-27 11:55] LABS: Anion Gap 12 (12-20); Blood Urea Nitrogen 10 mg/dL (9-16); Calcium 9.3 mg/dL (8.4-10.2); Carbon Dioxide 26 mmol/L (22-29); Chloride 105 mmol/L (96-108); Cholesterol 147 mg/dL (<200); Estimated Glomerular Filt Rate > 60; Glucose Random 104 mg/dL (60-115); HDL Cholesterol 42 mg/dL (>40); LDL Cholesterol Calculated 90 mg/dL (<100); Potassium 4.2 mmol/L (3.3-5.1); Sodium 139 mmol/L (135-145); Triglycerides 75 mg/dL (<150)
[2024-02-27 12:00] LABS: HIV AB/AG Nonreactive (Nonreactive); HIV Num 1 0.05 S/CO (0.00-0.99); ~HepC Num1 0.18 S/CO (0.00-0.79); ~Hepatitis C Antibody Nonreactive (Nonreactive)
[2024-02-27 12:10] LABS: TSH reflex Free T4 1.54 uIU/mL (0.32-4.0)
== END 2024-02-27 10:27 | disposition home or self-care (01) ==
LOC: HO.LAB 10:26
PROVIDERS: PCP Nurse Practitioner; Visit Provider Nurse Practitioner
DX: E66.813 Obesity, class 3 (principal); Z68.42 Body mass index [BMI] 45.0-49.9, adult
CPT/HCPCS: 36415; 80048; 80061; 83036; 84443; 86803; 87389

== ENCOUNTER 2024-05-31 08:02 | Outpatient (REF) | payer MEDICAID, SELFPAY ==
--- NOTE | ~2024-05-31 | CT_ITS ---
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 CT chest with contrast Comparison: CT/REG/SR - CT CHEST W IV CON - 04/08/23 08:48 EST Findings: The heart size is normal. The ill-defined soft tissue within the anterior mediastinum abutting the aorta has decreased in prominence since the comparison study. No new or increasing mass or lesion. No mediastinal adenopathy or pericardial effusion. No atherosclerotic disease noted. No effusion. No pneumothorax. No suspicious nodule. No acute osseous finding. The visualized upper abdomen is unremarkable. Impression: Decreasing ill-defined soft tissue within the anterior mediastinum. No new or suspicious lesion. This document has been electronically signed by: Simone Strauss MD on 05/31/2024 09:11:40
[2024-05-31] MEDS: iohexoL 350 MG/ML 100 ML INFUS..BTL IV (08:41)
== END 2024-05-31 08:03 | disposition home or self-care (01) ==
LOC: HO.CT 08:02
PROVIDERS: PCP Nurse Practitioner; Visit Provider Internal Medicine Medical Oncology
DX: C85.22 Mediastinal (thymic) large B-cell lymphoma, intrathoracic lymph nodes (principal)
CPT/HCPCS: 71260; Q9967

== ENCOUNTER → 2024-05-31 08:04 | Outpatient (BNV) | payer MEDICAID, SELFPAY | PROVIDERS: PCP Nurse Practitioner; Visit Provider Radiology Vascular & Interventional Radiology | DX: J98.59 Other diseases of mediastinum, not elsewhere classified (principal) | CPT/HCPCS: 71260 ==

== ENCOUNTER 2024-07-11 14:03 | Outpatient (REF) | payer MEDICAID, SELFPAY ==
--- OUTSIDE RECORDS SUMMARY | 2024-07-11 16:00 | XMS_ITS | Encounter Summary ---
Author Organization [employer] Address [address] [place] [address] Care Team Providers Care Clothing Presser Name Role Phone Darling Huntley Amy BOXING AND PRESSING SUPERVISOR Primary Care Provider [phone] Kristina Garrett COMMUNITY MARKETING MANAGER Primary Care Provider [phone] Encounter Details Date Type Department Care Team (Late st Contact Info) Description 02/04/2023 Abstract [facility] [address] [place] [address] Odette Victor Social History Tobacco Use Types Packs/Day Years Used Date Smoking Tobacco: Never Smokeless Tobacco: Never Alcohol Use Standard Drinks/Week Comments Never 0 (1 standard drink = 0.6 oz pur e alcohol) Depression Answer Date Recorded Patient Health Questionnaire-9 Score 0 07/04/2022 Depression Answer Date Recorded Patient Health Questionnaire-2 Score 0 07/04/2022 Comments Unknown Sex and Gender Information Value Date Recorded Sex Assigned at Female 03/03/2022 10:18 AM EDT Legal Sex Female 10:18 AM EDT Gender Identity Female 03/03/2022 10:18 AM EDT Sexual Orientation Straight 03/03/2022 10 :18 AM EDT documented as of this encounter Plan of Treatment Not on file documented as of this encounter Procedures Procedure Name Priority Date/Time Associated Diagnosis Comments HM PAP/HPV Routine 02/20/2021 documented in this encounter Results * Hm Pap Smear (02/20/2021) Pap Negative for intraephithelial lesion or malignancy Negative for intraephithelial lesion or malignancy, Other us Historical Provider HEALTH MAINTENANCE Final Result documented in this encounter Visit Diagnoses Not on filedocumented in this encounter Additional Health Concerns Assessment Noted Time PHQ-9 Depression Total Score: 0 07/05/19 23 3:21 PM EST documented as of this encounter Care Teams Clothing Presser Relationship Specialty Start Date End Date Darling Huntley FNP PCP - General Family Medicine 12/31/21 02/09/23 Kristina Garrett NP [address] [place] [id number] PCP - General Family Medicine 02/10/23 documented as of this encounter
--- OUTSIDE RECORDS SUMMARY | 2024-07-11 16:00 | XMS_ITS | Encounter Summary ---
Author Organization [employer] Address [address] [place] [address] Care Team Providers Care Soil Analyst Name Role Phone Kristina Garrett NP Primary Care Provider [phone] Encounter Details Date Type Department Care Team (Late st Contact Info) Description 06/27/2024 Telephone [facility] MEDICINE [address] [place] [address] Leisa Yousif, RN Social History Tobacco Use Types Packs/Day Years Used Date Smoking Tobacco: Never Smokeless Tobacco: Never Alcohol Use Standard Drinks/Week Comments Never 0 (1 standard drink = 0.6 oz pur e alcohol) Alcohol Answer Date Recorded How often do you have a drink containing alcohol ? 0 02/05/2024 How many drinks containing a lcohol do you have on a typical day when you are drinking? 0 02/05/2024 How often do you have six or more drinks on one occasion? 0 02/05/2024 Depression Answer Date Recorded Patient Health Questionnaire-9 Score 0 02/05/2024 Patient Health Questionnaire-9 Score 0 02/05/2024 Last PHQ-9: Questionnaire Data Not on file 1 Housing Stability Answer Date Recorded What is your housing situation today? I have molly franklin 09/11/[address] you li ve. Do you have problems with any of the following? None of the above 09/11/2023 Food Insecurity Answer Date Recorded Within the past 12 months, y ou worried that your food would run out before you got money to buy more: Never True 09/11/2023 Within the past 12 months,th e food you bought just didn't last and you didn't have enough money to get more: Never True 02/2024 Transportation Answer Date Recorded In the past 12 months, has l ack of transportation kept you from medical appts, meetings, work or from getting things needed for daily living? No 09/11/2023 Utilities Answer Date Recorded In the past 12 months, has t he electric, gas, oil or water company threatened to shut off services in your home? No 09/11/2023 Depression Answer Date Recorded Patient Health Questionnaire-2 Score 0 02/05/2024 Comments No Sex and Gender Information Value Date Recorded Sex Assigned at Female 03/03/2022 10:18 AM EDT Legal Sex Female 10:18 AM EDT Gender Identity Female 03/03/2022 10:18 AM EDT Sexual Orientation Straight 03/03/2022 10 :18 AM EDT documented as of this encounter Miscellaneous Notes * Telephone Encounter - Leisa Yousif RN - 06/27/2024 2:21 PM EST Incoming call from Na Crowe RN forms nurse who reports they discussed with pt to complete bloodwork for paperwork which pt agreed to. Na also reports pt needs MMR titers done based off oftheir immunizations. Titers ordered and Na reports they will call pt to let them know. documented in this encounter Plan of Treatment Scheduled Orders Name Type Priority Associated Diagnoses Orde r Schedule Measles, Mumps, and Rubella (MMR) Antibodies??(IgG) Panel, Immune Status Lab Routine Routine adult health maintenance Expected: 06/27/2024 (Approximate), Expires: 06/27/2025 documented as of this encounter Visit Diagnoses Diagnosis Routine adult health maintenance documented in this encounter Additional Health Concerns Assessment Noted Time PHQ-9 Depression Total Score: 0 02/05/20 2:41 PM EDT documented as of this encounter Care Teams Soil Analyst Relationship Specialty Start Date End Date Kristina Garrett NP [address] [place] [address] PCP - General Family Medicine 02/10/23 documented as of this encounter
--- OUTSIDE RECORDS SUMMARY | 2024-07-11 16:00 | XMS_ITS | Encounter Summary ---
Author Organization [employer] Address [address] [place] [address] Care Team Providers Care Carpentry Instructor Name Role Phone Kristina Garrett NP Primary Care Provider [phone] Encounter Details Date Type Department Care Team (Late st Contact Info) Description 06/24/2024 Telephone [facility] MEDICINE [address] [place] [address] Leisa Yousif, RN Social History Tobacco Use [...] Telephone Encounter - Leisa Yousif RN - 06/24/2024 10:10 AM EST Tc to pt in regards to T-spot blood work still needs to be completed ordered on 12/22/23. Received health status form from medical records and unable to complete until this has been resulted. No answer, lvm to return call and ask to speak to blue team nurses. documented in this encounter Plan of Treatment Not on file documented as of this encounter Visit Diagnoses Not on filedocumented in this encounter Additional Health Concerns Assessment Noted Time PHQ-9 Depression Total Score: 0 02/05/20 2:41 PM EDT documented as of this encounter Care Teams Carpentry Instructor Relationship Specialty Start Date End Date Kristina Garrett NP [address] [place] [id number] PCP - General Family Medicine 02/10/23 documented as of this encounter
--- OUTSIDE RECORDS SUMMARY | 2024-07-11 16:00 | XMS_ITS | Clinical Summary ---
Demographics Address [address] [place] [address] Home Phone Mobile Phone Preferred Language es Marital Status Lutheran Affiliation Unknown Race Unknown Ethnic Group or Author Organization [facility] Address [address] [place] [address] Care Team Providers Care Manager Compensation Name Role Phone Unavailable Primary Care Provider Unavailabl e Surgical History Surgery Date Site/Laterality Comments SECTION 2015 PROCEDURE: HISTORICAL DELIVERY; COMMENT: NRFHT, nuchal cord Medical History Medical History Date Comments Back pain DX:Back pain; CO MMENT: states she fell as a child from a tree and has had pain since-no treatment as of this time Adnexal mass DX:Adnexal mass 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) Family History Medical History Relation Name Comments Depression Brother Schizophrenia Brother Sleep apnea Father Alcohol abuse Maternal Grandfather No Known Problems Maternal Grandmother Anemia Mother Hypertension Mother Other: ?kidney problem/failure Mother Alcohol abuse Paternal Grandfather No Known Problems Paternal Grandmother Breast cancer Neg Hx Colon cancer Neg Hx Ovarian cancer Neg Hx Relation Name Status Comments Brother Alive Father Alive Maternal Grandfather Maternal Grandmother Alive Mother Alive Paternal Grandfather Paternal Grandmother Alive Sister 1 Alive Sister 2 Alive Social History Tobacco Use Types Packs/Day Years Used Date Smoking Tobacco: Never Smokeless Tobacco: Never Alcohol Use Standard Drinks/Week Comments No 0 (1 standard drink = 0.6 oz pur e alcohol) Comments Unknown Sex and Gender Information Value Date Recorded Sex Assigned at Not on file Legal Sex Female 2:01 AM EST Gender Identity Not on file Sexual Orientation Not on file Obstetrics History Last Filed Vital Signs Vital Sign Reading Time Taken Comments Blood Pressure 122/53 04/20/2023 8:59 AM EST Sit ting L Arm Pulse 77 04/20/2023 8:59 AM EST Temperature - - Respiratory Rate - - Oxygen Saturation - - Inhaled Oxygen Concentration - - Weight 103 kg (228 lb) 04/20/2023 8:59 AM EST Height 157.5 cm (5' 2 ) 04/20/2023 8:59 AM EST Body Mass Index 41.7 04/20/2023 8:59 AM EST Plan of Treatment Health Maintenance Due Date Last Done Comments COVID-19 Vaccine (#1) 1997 Hepatitis B Vaccines (1 of 3 - 19+ 3-dose series) 2011 Pneumococcal Vaccine: Pediat rics (0 to 5 Years) and At-Risk Patients (6 to 64 Years) (1 of 2 - PCV) 2011 Cholesterol Screening (Lipid Panel) 04/06/2022 Depression Screening 04/06/2022 HIV Screening 04/06/2022 Hepatitis C Screening 04/06/2022 Social Influencers of Health Screening 04/06/2022 Cervical Cancer Screening: P ap Smear 10/17/2022 10/18/2019 Influenza Vaccine (#1) 2024 DTaP,Tdap,and Td Vaccines (2 - Td or Tdap) 01/15/2030 01/16/2020 HIB Vaccines Aged Out No longer eligi ble based on patient's age to complete this topic HPV Vaccines Aged Out No longer eligi ble based on patient's age to complete this topic Hepatitis A Vaccines Aged Out No long er eligible based on patient's age to complete this topic IPV Vaccines Aged Out No longer eligi ble based on patient's age to complete this topic MMR Vaccines Aged Out No longer eligi ble based on patient's age to complete this topic Meningococcal ACWY Vaccine Aged Out N o longer eligible based on patient's age to complete this topic Meningococcal B Vacine Aged Out No lo nger eligible based on patient's age to complete this topic RSV Immunization Patients Un jose 20 months Aged Out No longer eligible b ased on patient's age to complete this topic Varicella Vaccines Aged Out No longer eligible based on patient's age to complete this topic Procedures Procedure Name Priority Date/Time Associated Diagnosis Comments PAP SMEAR Routine 10/18/2019 from Last 3 Months or Most Recently Relevant to Health Maintenance Results * Pap smear (10/18/2019) 10/18/2019 Narrative HISTORICAL TESTING LAB RESULTING AGENCY - 10/21/2019 12:25 PM EDT [id number] THINPREP PAP, IMAGED: NEGATIVE FOR SQUAMOUS INTRAEPITHELIAL LESION AND MALIGNANCY . GLOVER KAVON [place] , [place](ASCP) (CASE ELECTRONICALLY SIGNED 10 21 2019) ADEQUACY: SATISFACTORY ENDOCERVICAL/TRANSFORMATION ZONE COMPONENT PRESENT. SOURCE: THINPREP PAP HPV IF ASCUS, CERVICAL, IMAGED CLINICAL INFORMATION: HPV IF DIAGNOSIS OF ASCUS. PAP HX NEG, LMP FROM OB DATING 2-8-20, . Z12.4 us Madisyn Hodges DO LAB CYTOLOGY ORDERABLES Final Result HISTORICAL TESTING LAB RESULTING AGENCY from Last 3 Months or Most Recently Relevant to Health Maintenance
--- OUTSIDE RECORDS SUMMARY | 2024-07-11 16:01 | XMS_ITS | Encounter Summary ---
Author Organization [employer] Address [address] [place] [address] Care Team Providers Care Catering Chef Name Role Phone Darling HuntleyP Primary Care Provider [phone] Kristina Garrett NP Primary Care Provider [phone] Reason for Visit * Reason Onset Date Comments Document status 08/22/2022 Encounter Details Date Type Department Care Team (Late st Contact Info) Description 08/22/2022 Telephone [facility] MEDICINE [address] [place] [address] Darling Huntley FNP [address] Dept [place] [address] Document status Social History Tobacco Use Types Packs/Day Years [...] encounter Miscellaneous Notes * Telephone Encounter - Timothy Hoyt - 08/22/2022 11:53 AM EDT Tc from pt requesting status on Document that was given to provider on last visit on 07/04/2022 regarding to work form that needed to be sign. Pt states that work has not received anything yet and would like to know the status. Please contact pt at [phone] documented in this encounter Plan of Treatment Not on file documented as of this encounter Visit Diagnoses Not on filedocumented in this encounter Additional Health Concerns Assessment Noted Time PHQ-9 Depression Total Score: 0 07/05/19 23 3:21 PM EST documented as of this encounter Care Teams Catering Chef Relationship Specialty Start Date End Date Darling Huntley FNP PCP - General Family Medicine 12/31/21 02/09/23 Kristina Garrett NP [address] [place] [id number] PCP - General Family Medicine 02/10/23 documented as of this encounter
--- OUTSIDE RECORDS SUMMARY | 2024-07-11 16:01 | XMS_ITS | Clinical Summary ---
Author Organization [employer] Address [address] [facility] [address] [place] [address] Care Team Providers Care Animal Tech Name Role Phone Kristina Garrett NP Primary Care Provider [phone] Allergies Active Allergy Reactions Criticality Noted Date Comments Kiwi Extract 05/02/2024 Reports tingling around her neck and ears Medications No known medications Active Problems Problem Noted Date Diagnosed Date Class 3 severe obesity due t o excess calories without serious comorbidity with body mass index (BMI) of 45.0 to 49.9 in adult 05/02/2024 Assessment & Plan (05/02/2024 9:19 AM EST): -Healthy diet and exercise teaching completed: Eat a variety of fruit and vegetables, whole grains such as whole-wheat flour, bulgur (cracked wheat), oatmeal, and brown rice. Intake protein from beans, nuts, fish, and lean meats. Eat low-fat or fat- free dairy products. Limit highly processed foods such as hot dogs, sandwich meat, etc. Engage in minimum of 150 min of moderate intensity exercise weekly -Recommended to decrease soda and sugary beverage consumption. 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 Galvan B-cell lymphoma 02/22/2021 Noninfectious gastroenteritis 10/28/2011 Encounters Date Type Department Care Team Description 06/27/2024 Telephone [facility] [address] [place] [address] Leisa Yousif, SHIRIN 06/24/2024 Telephone [facility] [address] [place] [address] Leisa Yousif, SHIRIN 05/31/2024 Orders Only [facility] External Provider, [facility] 05/27/2024 Telephone [facility] [address] [place] [address] telephone call from Last 3 Months Immunizations Name Administration Dates Next Due DTaP 06/05/1996, 4,06/05/1993,01/03,1992 HPV, Bivalent 03/27/2008,05/18/2007,03/05/2007 Hep B, Adolescent or Pediatric 02/02/1997,1996,02/03/1996 Hib ([facility]) 02/03/1996,06/05/1993,01/03/1993 Influenza injectable quadriv alent IIV4 with preservative 03/01/2018 Influenza injectable quadriv alent preservative free 07/04/2022,03/21/2021,04/13/2019 Influenza, IIV3, injectable 04/07/2014, 8,03/05/2007 Influenza, Split (incl. aurelio fied surface antigen) 02/24/2012 Influenza, seasonal, injecta ble, preservative free 02/05/2024 MMR 03/26/2020, 6,05/05/2005,07/03,06/26/1993,06/05/1993 Meningococcal MPSV4 03/05/2007 OPV 06/05/1996, 4,01/03/1993,11/02 Pfizer Covid-19 Vaccine 12+ 11/20/2020, 1 Pfizer Covid-19 Vaccine 12+ Bivalent 07/04/2022 TD (adult), 2 Lf tetanus tox oid, preservative free, adsorbed 03/05/2005 Tdap 01/16/2020,02/24/2012 Varicella 05/09/2005 Family History Medical History Relation Name Comments Sleep apnea Father Breast cancer Mother's Sister Diabetes Mother's Sister Relation Name Status Comments Father Mother's Sister Social History Tobacco Use Types Packs/Day Years Used Date Smoking Tobacco: Never Smokeless Tobacco: Never Tobacco Cessation:Counseling Given: Not Answered Alcohol Use Standard Drinks/Week Comments Never 0 [...] Orientation Straight 03/03/2022 10 :18 AM EDT Last Filed Vital Signs Vital Sign Reading Time Taken Comments Blood Pressure 116/79 02/05/2024 2:36 PM EDT Pulse 96 02/05/2024 2:36 PM EDT Temperature 37.4 ??C (99.4 ??F) 02/05/2024 2:36 PM ED T Respiratory Rate 24 02/05/2024 2:36 PM EDT Oxygen Saturation 99% 02/05/2024 2:36 PM EDT Inhaled Oxygen Concentration - - Weight 108 kg (237 lb 12.8 oz) 03/22/2024 12:10 PM EST Height 156.5 cm (5' 1.61 ) 03/22/2024 12:[address] Body Mass Index 44.05 03/22/2024 12:10 PM EST Plan of Treatment Health Maintenance Due Date Last Done Comments Family Planning (PISQ) 2007 Pneumococcal Vaccine: Pediatrics (0 to 5 Years) and At-Risk Patients (6 to 49) Years) (1 of 2 - PCV) 2011 Zoster Vaccines (1 of 2) 2011 COVID-19 Vaccine ( - season) 2024 07/04/2022, 11/20/2020, 10/30/2020 SDOH Screening 09/10/2024 09/11/2023 Alcohol/Substance Use Screening 02/04/2025 02/05/2024 Depression Screening 02/04/2025 02/05/2024, 02/05/20 Tobacco Screening 02/04/2025 02/05/2024 Cervical Cancer Screening 02/20/2026 HPV/Cotest 02/20/2026 Pap Smear 02/20/2026 02/20/2021 Lipid Panel 02/26/2029 02/27/2024, 07/16/2022 DTaP/Tdap/Td Vaccines (8 - Td or Tdap) 01/15/2030 01/16/2020, 02/24/2012, 03/05/2005, Additional history exists RSV Patients and Patients Aged 60 years or older (1 - 1-dose 75+ series) 2067 HIB Vaccines Completed 02/03/1996, 06/1993, 01/03/1993 IPV Vaccines Completed 06/05/1996, 06/1993, 01/03/1993, Additional history exists Hepatitis B Vaccines Completed 02/02/1997, 06/05/1996, 02/03/1996 Meningococcal Vaccine Aged Out 03/05/2007 No gianna dilip eligible based on patient's age to complete this topic HPV Vaccines Completed 03/27/2008, 05/04, 03/05/2007 Influenza Vaccine Completed 02/05/2024, , 03/21/2021, Additional history exists HIV Screening Completed 02/27/2024 Hepatitis C Screening Completed 02/27/2024 Hepatitis A Vaccines Aged Out No long er eligible based on patient's age to complete this topic RSV under 20 months Aged Out No longe r eligible based on patient's age to complete this topic Rotavirus Vaccines Aged Out No longer eligible based on patient's age to complete this topic Procedures Procedure Name Priority Date/Time Associated Diagnosis Comments CT CHEST W CONTRAST Routine 05/31/2024 9 :11 AM EST HEPATITIS C AB W/REFL TO HCV RNA, QN, PCR Routine 02/27/2024 10:45 AM EDT Encounter for health-related screening HIV 1/2 ANTIGEN/ANTIBODY, FOURTH GENERATION W/RFL Routine 02/27/2024 10:45 AM EDT Encounter for health-related screening LIPID PANEL, STANDARD Routine 02/27/2024 10:45 AM EDT Class 3 severe obesity due to excess calories without serious comorbidity with body mass index (BMI) of 45.0 to 49.9 in adult (CMS/HCC) HM PAP/HPV Routine 02/20/2021 from Last 3 Months or Most Recently Relevant to Health Maintenance Results * CT Chest w/ Contrast (05/31/2024 9:11 AM EST) Anatomical Region Laterality Modality Body, Chest Computed Tomogra phy 05/31/2024 9:11 AM EST Narrative 05/31/2024 9:13 AM EST ? [facility] ?[address] ?[place] [address] ? CT Scan Report ? Signed ? Patient: Smith,Germania L ?MR#: [id number] ?? 1034 ? : 1990 ?Acct:[id number] ? Age/Sex: 33 / F ?ADM Date: 05/31/24 ? Loc: HO.CT ? Attending Dr: Sheila Galvan MD ? Ordering Physician: Sheila Galvan MD ?? Date of Service: 05/31/24 ?? Procedure(s): CT chest w IV con ?? Accession Number(s): [id number] ? cc: Kristina Garrett; Sheila Galvan MD ? Report Number: ?? [id number]: Total DLP = ??189.00 mGy-cm ? 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 ? CT chest with contrast ? Comparison: CT/REG/SR - CT CHEST W IV CON - 04/08/23 08:48 EST ? Findings: ?? The heart size is normal. ?? The ill-defined soft tissue within the anterior mediastinum abutting the ?? aorta has decreased in prominence since the comparison study. No new or ?? increasing mass or lesion. ?? No mediastinal adenopathy or pericardial effusion. ?? No atherosclerotic disease noted. ?? No effusion. No pneumothorax. ?? No suspicious nodule. ?? No acute osseous finding. ?? The visualized upper abdomen is unremarkable. ? Impression: ? Decreasing ill-defined soft tissue within the anterior mediastinum. ?? No new or suspicious lesion. ? This document has been electronically signed by: Simone Strauss MD on ?? 05/31/2024 09:11:40 ? Dictated By: ?Simone Strauss MD ? Signed By: ?<Electronically signed by Simone Strauss MD in OV> ? 05/31/24 0912 ? DD/ 0911 ? TD/TT: 05/31/24 09 ? Blind Teacher: ? 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 CT chest with contrast Comparison: CT/REG/SR - CT CHEST W IV CON - 04/08/23 08:48 EST Findings: The heart size is normal. The ill-defined soft tissue within the anterior mediastinum abutting the aorta has decreased in prominence since the comparison study. No new or increasing mass or lesion. No mediastinal adenopathy or pericardial effusion. No atherosclerotic disease noted. No effusion. No pneumothorax. No suspicious nodule. No acute osseous finding. The visualized upper abdomen is unremarkable. Impression: Decreasing ill-defined soft tissue within the anterior mediastinum. No new or suspicious lesion. This document has been electronically signed by: Simone Strauss MD on 05/31/2024 09:11:40 Dictated By: Simone Strauss MD Signed By: <Electronically signed by Simone Strauss MD in OV> 05/31/24911 DD/ 09 TD/TT: 05/31/24 09 Blind Teacher: [facility] External Provider IMG CT PROCEDURES Final Result * Hepatitis C Antibody with Reflex to HCV, RNA, Quantitative, Real-Time PCR (02/27/2024 10:45 AM EDT) Hepatitis C Antibody Nonreactive Nonreactive [facility] Comment:Antibodies to HCV no t detected; does not exclude early acuteHCV infection. Blood Venous blood specimen / Unknown 02/27/2024 10:45 AM EDT 02/27/2024 10:45 AM EDT [facility] B[facility]OD ORDERABLES Final Resu lt Performing Organization Address City/[facility] Co de Phone Number [facility] [address] [place] [address] [phone] * HIV-1/2 Antigen and Antibodies, Fourth Generation, with Reflexes (02/27/2024 10:45 AM EDT) HIV AB/AG Nonreactive Nonreactive [facility] Comment:HIV-1 p24 Ag and/or HIV-1/HIV-2 Ab not detected.A test result that is nonreactive does not exclude thepossibility of exposure to or infection with HIV-1 and/orHIV-2. Nonreactive results in this assay for individualswith prior exposure to HIV-1 and/or HIV-2 may be due toantigen and antibody levels that are below the limit ofdetection of this assay.The [employer] HIV Ag/Ab Combo assay result andsupplemental assay results should be interpreted inconjunction with the patient's clinical presentation,history and other laboratory results. If the results areinconsistent with clinical evidence, additional testing issuggested to confirm the result. Blood Venous blood specimen / Unknown 02/27/2024 10:45 AM EDT 02/27/2024 10:45 AM EDT [facility] LAB BLOOD ORDERABLES Final Resu lt Performing Organization Address City/[facility]/ZIP Co de Phone Number [facility] [address] [place] [address] [phone] * Lipid Panel, Standard (02/27/2024 10:45 AM EDT) Triglycerides 75 <150 mg/dL [facility] Comment:Desirable Triglyceri de: less than 150 mg/dLBorderline High Triglyceride 150-199 mg/dLHigh Triglyceride: 200-499 mg/dLVery High Triglyceride: greater than or equal to 5OO mg/dL Cholesterol 147 <200 mg/dL [facility] Comment:Desirable Cholestero l: less than 200 mg/dLBorderline High Cholesterol: 200-239 mg/dLHigh Cholesterol: greater than 239 mg/dL LDL Cholesterol Calculated 90 <100 mg/dL [facility] Comment:Desirable LDL: less than 100 mg/dLNear Optimal/Above Optimal LDL: 110- 129 mg/dLBorderline High LDL: 130-159 mg/dLHigh LDL: 160-189 mg/dLVery High LDL: greater than or equal to 190 mg/dL HDL Cholesterol 42 >40 mg/dL [facility] Comment:Desirable HDL: great er than 40 mg/dL Note: This HDL assay may give artificially low results in patients with liver disease. Blood Venous blood specimen / Unknown 02/27/2024 10:45 AM EDT 02/27/2024 10:45 AM EDT Kristina Garrett NP LAB BLOOD ORDERABLES Final Resu lt [facility] [address] [place] [phone] * Pap Smear (02/20/2021) Pap Negative for intraephithelial lesion or malignancy Negative for intraephithelial lesion or malignancy, Other Historical Provider HEALTH MAINTENANCE Final Result from Last 3 Months or Most Recently Relevant to Health Maintenance Insurance [place] [address] C3 Care Teams Animal Tech Relationship Specialty Start Date End Date Kristina Garrett NP [address] [place] [phone] PCP - General Family Medicine 02/10/23
[2024-07-12 09:38] LABS: Rubella IgG Antibody 3.26 Index; Rubeola IgG (Measles) >300.00 AU/mL
[2024-07-14 14:08] LABS: TS Negative Control Passed; TS Panel A 0; TS Panel B 0; TS Positive Control Passed; TSpotTB Negative (Negative)
== END 2024-07-11 14:04 | disposition home or self-care (01) ==
LOC: HO.HHCL 14:03
PROVIDERS: Visit Provider Nurse Practitioner
DX: Z00.00 Encounter for general adult medical examination without abnormal findings (principal); Z11.1 Encounter for screening for respiratory tuberculosis
CPT/HCPCS: 36415; 86481; 86735; 86762; 86765

== ENCOUNTER 2025-04-18 10:19 | Outpatient (REF) | payer MEDICAID, SELFPAY ==
[2025-04-18 11:26] LABS: MANUAL DIFF FLAG NO
[2025-04-18 11:33] LABS: Hematocrit 38.4 % (37.0-47.0); Hemoglobin 12.5 g/dl (12.0-16.0); Imm Gran Abs Auto 0.04 X10*3/uL (0.00-0.03); Imm Gran Pct Auto 0.4 % (0.0-0.4); Lymphocytes Absolute Auto 1.9 X10*3/uL (1.2-4.9); Mean Corpuscular HGB Conc 32.6 g/dl (31.0-35.0); Mean Corpuscular Hemoglobin 27.2 pg (27.0-33.0); Mean Corpuscular Volume 83.7 fL (80.0-98.0); NRBC Abs Auto 0.000 X10*3/uL (0.0-0.012); NRBC Pct Auto 0.0 /100WBC (0.0-0.2); Platelet Count 313 X10*3/uL (160-400); Red Blood Count 4.59 X10*6/uL (4.20-5.50); White Blood Count 9.3 X10*3/uL (4.8-10.8)
[2025-04-18 11:35] LABS: Hematocrit 38.4 % (37.0-47.0); Hemoglobin 12.4 g/dl (12.0-16.0); Imm Gran Abs Auto 0.03 X10*3/uL (0.00-0.03); Imm Gran Pct Auto 0.3 % (0.0-0.4); Lymphocytes Absolute Auto 1.8 X10*3/uL (1.2-4.9); Mean Corpuscular HGB Conc 32.3 g/dl (31.0-35.0); Mean Corpuscular Hemoglobin 27.0 pg (27.0-33.0); Mean Corpuscular Volume 83.7 fL (80.0-98.0); NRBC Abs Auto 0.000 X10*3/uL (0.0-0.012); NRBC Pct Auto 0.0 /100WBC (0.0-0.2); Platelet Count 317 X10*3/uL (160-400); Red Blood Count 4.59 X10*6/uL (4.20-5.50); White Blood Count 9.3 X10*3/uL (4.8-10.8)
[2025-04-18 11:56] LABS: Alanine Aminotransferase 25 U/L (0-31); Albumin Level 4.5 g/dL (3.5-5.0); Alkaline Phosphatase 64 U/L (39-117); Anion Gap 10 (12-20); Aspartate Amino Transferase 18 U/L (5-31); Blood Urea Nitrogen 11 mg/dL (9-16); Calcium 9.1 mg/dL (8.4-10.2); Carbon Dioxide 27 mmol/L (22-29); Chloride 106 mmol/L (96-108); Cholesterol 167 mg/dL (<200); Estimated Glomerular Filt Rate > 60; HDL Cholesterol 41 mg/dL (>40); Potassium 4.4 mmol/L (3.3-5.1); Sodium 139 mmol/L (135-145); Total Protein 7.1 g/dL (6.5-8.0); Triglycerides 73 mg/dL (<150)
--- OUTSIDE RECORDS SUMMARY | 2025-04-18 12:56 | XMS_ITS | Encounter Summary ---
Author Organization [facility] Address [address] [facility] [address] [place] [phone] Phone Care Team Providers Care Saturation Equipment Operator Name Role Phone [facility] Primary Care Provider Unavailable Encounter Details Date Type Department Care Team (Late st Contact Info) Description 02/27/2021 Ancillary Orders [facility],Outside Imaging [address] [place] [address] System, Provider Not In, [facility] [address] [address] Social History Tobacco Use Types Packs/Day Years Used Date Smoking Tobacco: Never Assessed Comments Unknown Sex and Gender Information Value Date Recorded Sex Assigned at Female 04/02/2021 9:04 AM EST Legal Sex Female 11:49 AM EDT Gender Identity Female 04/02/2021 9:04 AM EST Sexual Orientation Straight 04/02/2021 9: 04 AM EST documented as of this encounter Plan of Treatment Not on file documented as of this encounter Results * XR Chest Outside (No Interpretation) (12/28/2020 12:05 AM EDT) Narrative SYSTEMGENERATED, DOCUMENTATION - 02/27/2021 3:45 PM EDT This study is for PACS storage only and not for interpretation. us Provider Not In System PhD IMG OUTSIDE IMAGING W /OUT INTERPRETATION Final Result * CT Chest Outside (No Interpretation) (12/28/2020 12:00 AM EDT) Narrative SYSTEMGENERATED, DOCUMENTATION - 02/27/2021 3:45 PM EDT This study is for PACS storage only and not for interpretation. us Provider Not In System PhD IM[facility] OUTSIDE IMAGING W /OUT INTERPRETATION Final Result * CT Abdomen/Pelvis Outside (No Interpretation) (12/05/2020 12:05 AM EDT) Narrative SYSTEMGENERATED, DOCUMENTATION - 02/27/2021 3:47 PM EDT This study is for PACS storage only and not for interpretation. us Provider Not In System PhD IMG OUTSIDE IMAGING W /OUT INTERPRETATION Final Result * CT Chest Outside (No Interpretation) (12/05/2020 12:00 AM EDT) Narrative SYSTEMGENERATED, DOCUMENTATION - 02/27/2021 3:46 PM EDT This study is for PACS storage only and not for interpretation. us Provider Not In System PhD IM[facility] OUTSIDE IMAGING W /OUT INTERPRETATION Final Result documented in this encounter Visit Diagnoses Not on filedocumented in this encounter Care Teams Saturation Equipment Operator Relationship Specialty Start Date End Date [place] [facility] P[facility] - General 02/27/21 documented as of this encounter Additional Source Comments The information contained in this document represents components of the legal health record. It is not the complete legal health record.[facility]
--- OUTSIDE RECORDS SUMMARY | 2025-04-18 12:56 | XMS_ITS | Encounter Summary ---
Author Organization [employer] Address [address] [place] [address] Care Team Providers Care Quiller Machine Fixer Name Role Phone Darling Huntley SENIOR CORE JAVA DEVELOPER Primary Care Provider Kristina Reddy NP Primary Care Provider [phone] Encounter Details Date Type Department Care Team (Late st Contact Info) Description 02/04/2023 Abstract [facility] [address] [place] [address] Odette Victor Social History Tobacco Use Types [...] Other Historical Provider HEALTH MAINTENANCE Final Result documented in this encounter Visit Diagnoses Not on filedocumented in this encounter Additional Health Concerns Assessment Noted Time PHQ-9 Depression Total Score: 0 07/05/19 3:21 PM EST documented as of this encounter Care Teams Quiller Machine Fixer Relationship Specialty Start Date End Date Darling Huntley FNP PCP - General Family Medicine 12/31/21 02/09/23 Kristina Garrett NP [address] [place] [phone] PCP - General Family Medicine 02/10/23 documented as of this encounter
--- OUTSIDE RECORDS SUMMARY | 2025-04-18 12:56 | XMS_ITS | Encounter Summary ---
Author Organization [facility] Address [address] [place] [phone] Phone Care Team Providers Care Control Room Technician Name Role Phone Trinh Pack MD Primary Care Provider Unavailable Encounter Details Date Type Department Care Team (Late st Contact Info) Description 02/27/2021 Ancillary Orders [facility],Outside Imaging [address] [place] [address] System, Provider Not In, [facility] [address] [address] Social History Tobacco Use Types Packs/Day Years [...] on filedocumented in this encounter Care Teams Control Room Technician Relationship Specialty Start Date End Date Trinh Pack MD PCP - General 02/27/21 documented as of this encounter Additional Source Comments The information contained in this document represents components of the legal health record. It is not the complete legal health record.[facility]
--- OUTSIDE RECORDS SUMMARY | 2025-04-18 12:58 | XMS_ITS | Encounter Summary ---
Author Organization [employer] Address [address] [place] [address] Care Team Providers Care Sourcing Analyst Name Role Phone Kristina Garrett NP Primary Care Provider [phone] Encounter Details Date Type Department Care Team ([facility] st Contact Info) Description 04/18/2025 Orders Only GENERIC EXTERNAL DATA DEPARTMENT Provider, Generic External Data Social History Tobacco Use Types Packs/Day Years [...] Date Recorded Patient Health Questionnaire-9 Score 0 03/22/2025 Patient Health Questionnaire-9 Score 0 03/22/2025 Last PHQ-9: Questionnaire Data Not on file 1 05/22/2024 Housing Stability Answer Date Recorded What is your housing situation today? I have molly franklin 03/15/[address] you li ve. Do you have problems with any of the following? None of the above 03/15/2025 Food Insecurity Answer Date Recorded Within the past 12 months, y ou worried that your food would run out before you got money to buy more: Never True 03/15/2025 Within the past 12 months,th e food you bought just didn't last and you didn't have enough money to get more: Never True 04/2025 Transportation Answer Date Recorded In the past 12 months, has l ack of transportation kept you from medical appts, meetings, work or from getting things needed for daily living? No 03/15/2025 Utilities Answer Date Recorded In the past 12 months, has t he electric, gas, oil or water company threatened to shut off services in your home? No 03/15/2025 Depression Answer Date Recorded Patient Health Questionnaire-2 Score 0 03/22/2025 Internet Access Answer Date Recorded Internet Access Q1 Yes 03/15/2025 Internet Access Q2 Not on file 03/15/2025 Comments No Sex and Gender Information Value Date Recorded Sex Assigned at Female 03/03/2022 10:18 AM EDT Legal Sex Female 10:18 AM EDT Gender Identity Female 03/03/2022 10:18 AM EDT Sexual Orientation Straight 03/03/2022 10 :18 AM EDT documented as of this encounter Plan of Treatment Not on file documented as of this encounter Procedures Procedure Name Priority Date/Time Associated Diagnosis Comments CBC WITH AUTO DIFFERENTIAL Routine 04/18/2025 10:26 AM EST LD Routine 04/18/2025 10:26 AM EST COMPREHENSIVE METABOLIC PANEL Routine 04/18/2025 10:26 AM EST documented in this encounter Results * Lactate Dehydrogenase (LD) (04/18/2025 10:26 AM EST) Lactate Dehydrogenase 219 122 - 220 U/L [facility] 04/18/2025 10:2 6 AM EST 04/18/2025 11:23 AM EST us Generic External Data Provider LAB BLOOD ORDERAB LES Final Result [facility] [address] [place] [phone] * (ABNORMAL) Comprehensive Metabolic Panel (04/18/2025 10:26 AM EST) Sodium 139 135 - 145 mmol/L [facility] Potassium 4.4 3.3 - 5.1 mmol/L [facility] Chloride 106 96 - 108 mmol/L [facility] Carbon Dioxide 27 22 - 29 mmol/L [facility] Anion Gap 10(L) 12 - 20 [facility] Urea Nitrogen (BUN) 11 9 - 16 mg/dL [facility] Creatinine, Serum 0.63 0.5 - 1.4 mg/dL [facility] Estimated Glomerular Filt Rate >60 [facility] Comment:Chronic Kidney Disea se: Estimated GFR < 60 mL/min/[id number] Kidney Disease: Estimated GFR < 15 mL/min/1.73m2 Glucose 106 60 - 115 mg/dL [facility] Calcium 9.1 8.4 - 10.2 mg/dL [facility] Bilirubin, Total 0.4 0.0 - 1.0 mg/dL [facility] Aspartate Amino Transferase 18 5 - 31 U/L [facility] Alanine Aminotransferase 25 0 - 31 U/L [facility] Total Protein 7.1 6.5 - 8.0 g/dL [facility] Albumin Level 4.5 3.5 - 5.0 g/dL [facility] Alkaline Phosphatase 64 39 - 117 U/L [facility] 04/18/2025 10:2 6 AM EST 04/18/2025 11:23 AM EST us Generic External Data Provider LAB BLOOD ORDERAB LES Final Result [facility] [address] [place] [phone] * (ABNORMAL) CBC auto differential (04/18/2025 10:26 AM EST) White Blood Count 9.3 4.8 - 10.8 X10*3/uL [facility] Red Blood Count 4.59 4.20 - 5.50 X10*6/uL [facility] Hemoglobin 12.4 12.0 - 16.0 g/dl [facility] Hematocrit 38.4 37.0 - 47.0 % [facility] Mean Corpuscular Volume 83.7 80.0 - 98.0 fL [facility] Mean Corpuscular Hemoglobin 27.0 27.0 - 33.0 pg [facility] Mean Corpuscular HGB Conc 32.3 31.0 - 35.0 g/dl [facility] Red Cell Distribution Width 13.6 11.0 - 16.0 % [facility] Platelet Count 317 160 - 400 X10*3/uL [facility] Mean Platelet Volume 9.3(L) 9.4 - 12.3 fL [facility] Neutrophils Percent Auto 70.5 45 - 73 % [facility] Imm Gran Pct Auto 0.3 0.0 - 0.4 % [facility] Lymphocytes Percent Auto 19.0(L) 20 - 40 % [facility] Monocytes Percent Auto 7.2 2 - 11 % [facility] Eosinophils Percent Auto 2.6 0 - 4 % [facility] Basophils Percent Auto 0.4 0 - 2 % [facility] NRBC Pct Auto 0.0 0.0 - 0.2 /100WBC [facility] Neutrophils Absolute Auto 6.5 2.0 - 8.3 x10*3/uL [facility] Imm Gran Abs Auto 0.03 0.00 - 0.03 X10*3/uL [facility] Lymphocytes Absolute Auto 1.8 1.2 - 4.9 X10*3/uL [facility] Monocytes Absolute Auto 0.7 0.1 - 1.2 X10*3/uL [facility] Eosinophils Absolute Auto 0.2 0.0 - 0.4 X10*3/uL [facility] Basophils Absolute Auto 0.0 0.0 - 0.2 X10*3/uL [facility] NRBC Abs Auto 0.000 0.0 - 0.012 X10*3/uL [facility] 04/18/2025 10:2 6 AM EST 04/18/2025 11:23 AM EST us Generic External Data Provider LAB BLOOD ORDERAB LES Final Result [facility] [address] [place] [phone] documented in this encounter Visit Diagnoses Not on filedocumented in this encounter Additional Health Concerns Assessment Noted Time PHQ-9 Depression Total Score: 0 03/22/20 25 3:18 PM EST documented as of this encounter Care Teams Sourcing Analyst Relationship Specialty Start Date End Date Kristina Garrett NP [address] [place] [address] PCP - General Family Medicine 02/10/23 documented as of this encounter
--- OUTSIDE RECORDS SUMMARY | 2025-04-18 12:58 | XMS_ITS | Clinical Summary ---
Author Organization [facility] Address [address] [facility] [address] [address] [place] [phone] Phone Care Team Providers Care Toolmaker Grade Three Name Role Phone [facility] Primary Care Provider Unavailable Allergies No known active allergies Medications ondansetron (ZOFRAN) 8 MG tablet Take by mouth every 8 (eight) hours as needed for nausea. Active predniSONE (DELTASONE) 20 MG tablet Take 60 mg by mouth daily with breakfast. For 5 days with each cycle of chemotherapy Active docusate sodium (COLACE) 100 MG capsule Take 100 mg by mouth 2 (two) times a day as needed for constipation. 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 Not on trae e 08/29/2022 Are you concerned about learning? Not on file 08/29/2022 No 08/29/2022 No 08/29/2022 Digital Access Answer Date Recorded No 09/28/2022 No 09/28/2022 No 09/28/2022 Reliable internet access at home? Not on file 09/28/2022 Device with a working camera? Not on file Comments Unknown Sex and Gender Information Value Date Recorded Sex Assigned at Female 04/02/2021 9:04 AM EST Legal Sex Female 11:49 AM EDT Gender Identity Female 04/02/2021 9:04 AM EST Sexual Orientation Straight 04/02/2021 9: 04 AM EST Last Filed Vital Signs Vital Sign Reading Time Taken Comments Blood Pressure 109/75 08/01/2021 9:13 AM EDT Pulse 89 08/01/2021 9:13 AM EDT Temperature 36.6 C (97.8 F) 08/01/2021 9:13 AM EDT Respiratory Rate 18 03/21/2021 10:5 4 AM EST Oxygen Saturation 99% 08/01/2021 9:13 AM EDT Inhaled Oxygen Concentration - - Weight 105.4 kg (232 lb 5.8 oz) 08/01/2021 9:13 AM EDT Height - - Body Mass Index - - Plan of Treatment Health Maintenance Due Date Last Done Comments DEPRESSION SCREENING 2004 HEPATITIS C SCREENING 2010 HIV ONE-TIME SCREENING (18-6 5 YEARS) 2010 PNEUMOCOCCAL VACCINES (0-49 years) (1 of 2 - PCV) 2011 PAP SMEAR 2013 INFLUENZA VACCINE (#1) 2024 03/21/2021 COVID-19 VACCINE (3 - 2024-2 6 season) 2025 11/20/2020, 10/30/2020 Adult Td,Tdap Booster 01/15/2030 01/16/2020 , 12/19/2015 SMOKING STATUS SCREENING (On ce After 26 Yrs) Completed 03/21/2021 HEPATITIS A VACCINES Aged Out No long er eligible based on patient's age to complete this topic HIB VACCINES Aged Out No longer eligi ble based on patient's age to complete this topic MENINGOCOCCAL VACCINES (ACWY) Aged Out No longer eligible based on patient's age to complete this topic MENINGOCOCCAL VACCINES (B) Aged Out N o longer eligible based on patient's age to complete this topic Medical Devices Implanted Type Area Office Service Coordinator Device Identifier Shelf Expiration Date Model / Serial / Lot Port Port Chest Description:Port right chest Insurance C3 ACO C3 ACO C3 ACO C3 ACO C3 ACO C3 ACO C3 ACO Care Teams Toolmaker Grade Three Relationship Specialty Start Date End Date [facility] - General 02/27/21 Additional Source Comments The information contained in this document represents components of the legal health record. It is not the complete legal health record.[facility]
--- OUTSIDE RECORDS SUMMARY | 2025-04-18 12:58 | XMS_ITS | Clinical Summary ---
Demographics Address [address] [place] [address] Home Phone Mobile Phone Preferred Language es Marital Status Scientology Affiliation Unknown Race Unknown Ethnic Group or Author Organization [facility] Address [address] [place] [address] Care Team Providers Care Human Performance Technologist Name Role Phone Unavailable Primary Care Provider Unavailabl e Surgical History Surgery Date Site/Laterality Comments SECTION 2015 PROCEDURE: HISTORICAL DELIVERY; COMMENT: NRFHT, nuchal cord Medical History Medical History Date Comments Back pain DX:Back pain; CO MMENT: states she fell as a child from a tree and has had pain since-no treatment as of this time Adnexal mass DX:Adnexal mass Large B-cell lymphoma (CMS/H CC V24, CMS/HCC V28) DX:Large B-cell lymphoma (HC C) Family History Medical History Relation Name Comments [...] on file Sexual Orientation Not on file Last Filed Vital Signs Vital Sign Reading [...] 5 Years) and At-Risk Patients (6 to 49 Years) (1 of 2 - PCV) 2011 HPV Vaccines (1 - Risk 3-dos e SCDM series) 2019 Cholesterol Screening (Lipid Panel) 04/06/2022 HIV Screening 04/06/2022 Hepatitis C Screening 04/06/2022 Social Influencers of Health Screening 04/06/2022 Cervical Cancer Screening: P ap Smear 10/17/2022 10/18/2019 Depression Screening 05/04/2024 Influenza Vaccine (#1) 2025 DTaP,Tdap,and Td Vaccines (2 - Td or Tdap) 01/15/2030 01/16/2020 RSV Immunization Adult Patie nts (1 - 1-dose 75+ series) 2067 HIB Vaccines Aged Out No longer eligi [...] age to complete this topic Meningococcal B Vaccine Aged Out No l onger eligible based on patient's age to complete [...] RESULTING AGENCY - 10/21/2019 12:25 PM EDT [id number] THINPREP PAP, IMAGED: NEGATIVE FOR SQUAMOUS INTRAEPITHELIAL LESION AND MALIGNANCY . KATIA KEMP(ASCP) (CASE ELECTRONICALLY SIGNED 10 21 2019) ADEQUACY: SATISFACTORY ENDOCERVICAL/TRANSFORMATION ZONE COMPONENT PRESENT. SOURCE: THINPREP PAP HPV IF ASCUS, CERVICAL, IMAGED CLINICAL INFORMATION: HPV IF DIAGNOSIS OF ASCUS. PAP HX NEG, LMP FROM OB DATING 2-8-20, . Z12.4 Madisyn Hodges DO LAB CYTOLOGY ORDERABLES Final Result HISTORICAL TESTING LAB RESULTING AGENCY from Last 3 Months or Most Recently Relevant to Health Maintenance
--- OUTSIDE RECORDS SUMMARY | 2025-04-18 12:58 | XMS_ITS | Clinical Summary ---
Author Organization [employer] Address [address] [place] [address] Care Team Providers Care Wool Fleece Grader Name Role Phone Kristina Garrett NP Primary Care Provider [phone] Allergies Active Allergy Reactions Criticality Noted Date Comments Kiwi Extract 05/02/2024 Reports tingling around her neck and ears Medications No known medications Active Problems Problem Noted Date Diagnosed Date Class 3 severe obesity due t o excess calories without serious comorbidity with body mass index (BMI) of 45.0 to 49.9 in adult 05/02/2024 Assessment & Plan (03/22/2025 3:49 PM EST): Wants to try weight loss injections. 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 Galvan B-cell lymphoma ([facility]) 02/22/2021 Assessment & Plan (03/22/2025 3:49 PM EST): 4-5 years remission Orders: CBC auto differential; Future Noninfectious gastroenteritis 10/28/2011 Encounters Date Type Department Care Team Description 04/18/2025 Orders Only GENERIC EXTERNAL DATA DEPARTMENT Provider, Generic External Data 03/22/2025 2:45 PM EST Office Visit [facility] [address] [place] [phone] Kristina Garrett NP Annual physical exam (Primary Dx); Dietary counseling; Exercise counseling; Class 3 severe obesity due to excess calories without serious comorbidity with body mass index (BMI) of 45.0 to 49.9 in adult ([facility]); B-cell lymphoma, unspecified B-cell lymphoma type, unspecified body region ([facility]) ([facility]); Decreased hearing of right ear; Encounter for immunization 03/22/2025 Travel 03/21/2025 Telephone [facility] [address] [place] [phone] Kristina Garrett NP CHARTPREP 03/15/2025 Patient Outreach [facility] [address] [place] [address] Kristina Garrett NP Pre-visit Planning (SDOH negative, Tobacco screening negative) from Last 3 Months Immunizations Immunization Administration Dates Next Due DTaP 06/05/1996, 4,06/05/1993,01/03,1992 HPV, Bivalent 03/27/2008,05/18/2007,03/05/2007 Hep B, Adolescent or Pediatric 02/02/1997,1996,02/03/1996 Hib (HbOC) 02/03/1996,06/05/1993,01/03/1993 Influenza injectable quadriv alent IIV4 with preservative 03/01/2018 Influenza injectable quadriv alent preservative free 07/04/2022,03/21/2021,04/13/2019 Influenza, IIV3, injectable 04/07/2014, 8,03/05/2007 Influenza, Split (incl. aurelio fied surface antigen) 02/24/2012 Influenza, seasonal, injecta ble, preservative free 03/22/2025,02/05/2024 MMR 03/26/2020, 6,05/05/2005,07/03,06/26/1993,06/05/1993 Meningococcal MPSV4 03/05/2007 OPV, Trivalent 06/05/1996, 4,01/03/1993,11/02 Pfizer Covid-19 Vaccine 12+ 11/20/2020, [...] Sign Reading Time Taken Comments Blood Pressure 126/78 03/22/2025 3:15 PM EST Pulse 94 03/22/2025 3:15 PM EST Temperature 36.7 C (98 F) 03/22/2025 3:15 PM EST Respiratory Rate 21 03/22/2025 3:15 PM EST Oxygen Saturation 99% 03/22/2025 3:15 PM EST Inhaled Oxygen Concentration - - Weight 104 kg (229 lb 12.8 oz) 03/22/2025 3:15 P M EST Height 154.9 cm (5' 1 ) 03/22/2025 3:15 PM EST Body Mass Index 43.42 03/22/2025 3:15 PM EST Plan of Treatment Health Maintenance Due Date Last Done Comments Family Planning (PISQ) 2007 Pneumococcal Vaccine: Pediatrics (0 to 5 Years) and At-Risk Patients (6 to 49) Years (1 of 2 - PCV) 2011 Zoster Vaccines (1 of 2) 2011 COVID-19 Vaccine (4 - season) 2025 07/04/2022, 11/20/2020, 10/30/2020 Cervical Cancer Screening 02/20/2026 HPV/Cotest 02/20/2026 Pap Smear 02/20/2026 02/20/2021 SDOH Screening 03/15/2026 03/15/2025 Alcohol/Substance Use Screening 03/22/2026 03/22/2025 Depression Screening 03/22/2026 03/22/2025, 03/22/20 25 Disability Screening 03/22/2026 03/22/2025 Tobacco Screening 03/22/2026 03/22/2025 DTaP/Tdap/Td Vaccines (8 - Td or Tdap) 01/15/2030 01/16/2020, 02/24/2012, 03/05/2005, Additional history exists Lipid Panel 04/18/2030 04/18/2025, 02/02, 07/16/2022 RSV Patients and Patients Aged 60 years or older (1 - 1-dose 75+ series) 2067 HIB Vaccines Completed 02/03/1996, 06/1993, 01/03/1993 IPV Vaccines Completed 06/05/1996, 06/1993, 01/03/1993, Additional history exists Hepatitis B Vaccines Completed 02/02/1997, 06/05/1996, 02/03/1996 Meningococcal Vaccine Aged Out 03/05/2007 No gianna dilip eligible based on patient's age to complete this topic HPV Vaccines Completed 03/27/2008, 05/04, 03/05/2007 HIV Screening Completed 02/27/2024 Hepatitis C Screening Completed 02/27/2024 Influenza Vaccine Completed 03/22/2025, , 07/04/2022, Additional history exists Hepatitis A Vaccines Aged Out No long [...] Procedure Name Priority Date/Time Associated Diagnosis Comments LD Routine 04/18/2025 10:26 AM EST COMPREHENSIVE METABOLIC PANEL Routine 04/18/2025 10:26 AM EST CBC WITH AUTO DIFFERENTIAL Routine 04/18/2025 10:26 AM EST CBC WITH AUTO DIFFERENTIAL Routine 04/18/2025 10:26 AM EST B-cell lymphoma, unspecified B-cell lymphoma type, unspecified body region (CMS/HCC) (HCC) TSH W/REFLEX TO FT4 Routine 04/18/2025 1 0:26 AM EST Class 3 severe obesity due to excess calories without serious comorbidity with body mass index (BMI) of 45.0 to 49.9 in adult (HCC) HEMOGLOBIN A1C Routine 04/18/2025 10:26 AM EST Class 3 severe obesity due to excess calories without serious comorbidity with body mass index (BMI) of 45.0 to 49.9 in adult (HCC) LIPID PANEL, STANDARD Routine 04/18/2025 10:26 AM EST Class 3 severe obesity due to excess calories without serious comorbidity with body mass index (BMI) of 45.0 to 49.9 in adult (HCC) HEPATITIS C AB W/REFL TO HCV RNA, QN, PCR Routine 02/27/2024 10:45 AM EDT Encounter for health-related screening HIV 1/2 ANTIGEN/ANTIBODY, FOURTH GENERATION W/RFL Routine 02/27/2024 10:45 AM EDT Encounter for health-related screening HM PAP/HPV Routine 02/20/2021 from Last 3 Months or Most Recently Relevant to Health Maintenance Results * TSH W/Reflex to FT4 (04/18/2025 10:26 AM EST) Pathologist [facility] TSH reflex Free T4 1.34 0.32 - 4.0 uIU/mL [facility] Blood Venous blood specimen / Unknown 04/18/2025 10:26 AM EST 04/18/2025 11:23 AM EST us Kristina Appram METAL FABRICATOR WELDER LAB BLOOD ORDERABLES Final Resu lt [facility] [address] [place] [address] [phone] * (ABNORMAL) CBC auto differential (04/18/2025 10:26 AM EST) Only the most recent of2 resultswithin the time period is included. [facility] White Blood Count 9.3 4.8 - 10.8 X10*3/uL [facility] Red Blood Count 4.59 4.20 - 5.50 X10*6/uL [facility] Hemoglobin 12.4 12.0 - 16.0 g/dl [facility] Hematocrit 38.4 37.0 - 47.0 % [facility] Mean Corpuscular Volume 83.7 80.0 - 98.0 fL [facility] Mean Corpuscular Hemoglobin 27.0 27.0 - 33.0 pg [facility] Mean Corpuscular HGB Conc 32.3 31.0 - 35.0 g/dl [facility] Red Cell Distribution Width 13.6 11.0 - 16.0 % [facility] Platelet Count 317 160 - 400 X10*3/uL [facility] Mean Platelet Volume 9.3(L) 9.4 - 12.3 fL [facility] Neutrophils Percent Auto 70.5 45 - 73 % [facility] Imm Gran Pct Auto 0.3 0.0 - 0.4 % [facility] Lymphocytes Percent Auto 19.0(L) 20 - 40 % [facility] Monocytes Percent Auto 7.2 2 - 11 % [facility] Eosinophils Percent Auto 2.6 0 - 4 % [facility] Basophils Percent Auto 0.4 0 - 2 % [facility] NRBC Pct Auto 0.0 0.0 - 0.2 /100WBC [facility] Neutrophils Absolute Auto 6.5 2.0 - 8.3 x10*3/uL [facility] Imm Gran Abs Auto 0.03 0.00 - 0.03 X10*3/uL [facility] Lymphocytes Absolute Auto 1.8 1.2 - 4.9 X10*3/uL [facility] Monocytes Absolute Auto 0.7 0.1 - 1.2 X10*3/uL [facility] Eosinophils Absolute Auto 0.2 0.0 - 0.4 X10*3/uL [facility] Basophils Absolute Auto 0.0 0.0 - 0.2 X10*3/uL [facility] NRBC Abs Auto 0.000 0.0 - 0.012 X10*3/uL [facility] 04/18/2025 10:2 6 AM EST 04/18/2025 11:23 AM EST us Generic External Data Provider LAB BLOOD ORDERAB LES Final Result Performing Organization Address City/[facility] Co de Phone Number [facility] [address] [place] [phone] * Lactate Dehydrogenase (LD) (04/18/2025 10:26 AM EST) Lactate Dehydrogenase 219 122 - 220 U/L [facility] 04/18/2025 10:2 6 AM EST 04/18/2025 11:23 AM EST us Generic External Data Provider LAB BLOOD ORDERAB LES Final Result Performing Organization Address [facility] Co de Phone Number [facility] [address] [place] [phone] * Hemoglobin A1c (04/18/2025 10:26 AM EST) Hemoglobin A1c 5.3 <6.0 % [facility] Comment:Hemoglobin A1C Refer ence Range Adults: 4.8 - 6.0 % Non diabetic: < 6.0 % Goal: < 7.0 %Additional Action Suggested: > 8.0 %Note: Hemoglobin A1c results are invalid for patients with abnormal amounts of HbF. Blood transfusions may impact the HbA1c concentration in the patient sample. Estimated Average Glucose 105 mg/dL [facility] Comment:eAG = Estimated ave rage glucose which is %A1C expressed asaverage glucose, using the formula of the M4F-KgbyuqjNzojagg Glucose study (ADAG), Diabetes Care, Vol.31,#8,Dec. 2007 Blood Venous blood specimen / Unknown 04/18/2025 10:26 AM EST 04/18/2025 11:23 AM EST Kristina Garrett NP LAB BLOOD ORDERABLES Final Resu lt [facility] [address] [place] [phone] * (ABNORMAL) Lipid Panel, Standard (04/18/2025 10:26 AM EST) Triglycerides 73 <150 mg/dL [facility] Comment:Desirable Triglyceri de: less than 150 mg/dLBorderline High Triglyceride 150-199 mg/dLHigh Triglyceride: 200-499 mg/dLVery High Triglyceride: greater than or equal to 5OO mg/dL Cholesterol 167 <200 mg/dL [facility] Comment:Desirable Cholestero l: less than 200 mg/dLBorderline High Cholesterol: 200-239 mg/dLHigh Cholesterol: greater than 239 mg/dL LDL Cholesterol Calculated 112(H) <100 mg/dL [facility] Comment:Desirable LDL: less than 100 mg/dLNear Optimal/Above Optimal LDL: 110- 129 mg/dLBorderline High LDL: 130-159 mg/dLHigh LDL: 160-189 mg/dLVery High LDL: greater than or equal to 190 mg/dL HDL Cholesterol 41 >40 mg/dL [facility] Comment:Desirable HDL: great er than 40 mg/dL Note: This HDL assay may give artificially low results in patients with liver disease. Blood Venous blood specimen / Unknown 04/18/2025 10:26 AM EST 04/18/2025 11:23 AM EST us Kristina Tami METAL FABRICATOR WELDER LAB BLOOD ORDERABLES Final Resu lt [facility] [address] [place] [phone] [phone] * (ABNORMAL) Comprehensive Metabolic Panel (04/18/2025 10:26 AM EST) Sodium 139 135 - 145 mmol/L [facility] Potassium 4.4 3.3 - 5.1 mmol/L [facility] Chloride 106 96 - 108 mmol/L [facility] Carbon Dioxide 27 22 - 29 mmol/L [facility] Anion Gap 10(L) 12 - 20 [facility] Urea Nitrogen (BUN) 11 9 - 16 mg/dL [facility] Creatinine, Serum 0.63 0.5 - 1.4 mg/dL [facility] Estimated Glomerular Filt Rate >60 [facility] Comment:Chronic Kidney Disea se: Estimated GFR < 60 mL/min/[id number] Kidney Disease: Estimated GFR < 15 mL/min/1.73m2 Glucose 106 60 - 115 mg/dL [facility] Calcium 9.1 8.4 - 10.2 mg/dL [facility] Bilirubin, Total 0.4 0.0 - 1.0 mg/dL [facility] Aspartate Amino Transferase 18 5 - 31 U/L [facility] Alanine Aminotransferase 25 0 - 31 U/L [facility] Total Protein 7.1 6.5 - 8.0 g/dL [facility] Albumin Level 4.5 3.5 - 5.0 g/dL [facility] Alkaline Phosphatase 64 39 - 117 U/L [facility] 04/18/2025 10:2 6 AM EST 04/18/2025 11:23 AM EST us Generic External Data Provider LAB BLOOD ORDERAB LES Final Result Performing Organization Address [facility]/ZIP Co de Phone Number [facility] [address] [place] [phone] * Hepatitis C Antibody with Reflex to HCV, RNA, Quantitative, Real-Time PCR (02/27/2024 10:45 AM EDT) Hepatitis C Antibody Nonreactive Nonreactive [facility] Comment:Antibodies to HCV no t detected; does not exclude early acuteHCV infection. Blood Venous blood specimen / Unknown 02/27/2024 10:45 AM EDT 02/27/2024 10:45 AM EDT us Kristina Garrett NP LAB BLOOD ORDERABLES Final Resu lt Performing Organization Address [facility] Co de Phone Number [facility] [address] [place] [address] [phone] * HIV-1/2 Antigen and Antibodies, Fourth Generation, with Reflexes (02/27/2024 10:45 AM EDT) HIV AB/AG Nonreactive Nonreactive [facility] Comment:HIV-1 p24 Ag and/or HIV-1/HIV-2 Ab not detected.A test result that is nonreactive does not exclude thepossibility of exposure to or infection with HIV-1 and/orHIV-2. Nonreactive results in this assay for individualswith prior exposure to HIV-1 and/or HIV-2 may be due toantigen and antibody levels that are below the limit ofdetection of this assay.The [employer] HIV Ag/Ab Combo assay result andsupplemental assay results should be interpreted inconjunction with the patient's clinical presentation,history and other laboratory results. If the results areinconsistent with clinical evidence, additional testing issuggested to confirm the result. Blood Venous blood specimen / Unknown 02/27/2024 10:45 AM EDT 02/27/2024 10:45 AM EDT us Kristina Appram METAL FABRICATOR WELDER LAB BLOOD ORDERABLES Final Resu lt [facility] [address] [place] [phone] * Pap Smear (02/20/2021) Pap Negative for intraephithelial lesion or malignancy Negative for intraephithelial lesion or malignancy, Other us Historical Provider MD HEALTH MAINTENANCE Final Result from Last 3 Months or Most Recently Relevant to Health Maintenance Insurance [employer] C3 Care Teams Wool Fleece Grader Relationship Specialty Start Date End Date Kristina Garrett NP [address] [place] [phone] PCP - General Family Medicine 02/10/23
--- OUTSIDE RECORDS SUMMARY | 2025-04-18 12:58 | XMS_ITS | Encounter Summary ---
Author Organization [facility] Address [address] [place] [phone] Phone Care Team Providers Care Wool Hat Forming Machine Tender Name Role Phone Trinh Pack MD Primary Care Provider Unavailable Encounter Details Date Type Department Care Team (Late st Contact Info) Description 03/18/2021 Ancillary Orders [facility],Outside Imaging [address] [place] [address] System, Provider Not In, [facility] [address] [phone] Social History Tobacco Use Types Packs/Day Years [...] documented as of this encounter Results * MRI Pelvis (Bone) Outside (No Interpretation) (03/05/2021 12:00 AM EDT) Narrative SYSTEMGENERATED, DOCUMENTATION - 03/18/2021 11:58 AM EST This study is for PACS storage only and not for interpretation. us Provider Not In System [facility] OUTSIDE IMAGING W /OUT INTERPRETATION Final Result documented in this encounter Visit Diagnoses Not on filedocumented in this encounter Care Teams Wool Hat Forming Machine Tender Relationship Specialty Start Date End Date Trinh Pack MD PCP - General 02/27/21 documented as of this encounter Additional Source Comments The information contained in this document represents components of the legal health record. It is not the complete legal health record.[facility]
--- OUTSIDE RECORDS SUMMARY | 2025-04-18 12:58 | XMS_ITS | Encounter Summary ---
Author Organization [facility] Address [address] [place] [phone] Phone Care Team Providers Care Negative Restorer Name Role Phone Trinh Pack MD Primary Care Provider Unavailable Encounter Details Date Type Department Care Team (Late st Contact Info) Description 03/20/2021 Ancillary Orders [facility],Outside Imaging [address] [place] [address] System, Provider Not In, [facility] [address] [address] Social History Tobacco Use Types Packs/Day Years [...] documented as of this encounter Results * NM PET Whole Body Outside (No Interpretation) (02/05/2021 12:00 AM EDT) Narrative SYSTEMGENERATED, DOCUMENTATION - 03/20/2021 12:00 PM EST This study is for PACS storage only and not for interpretation. us Provider Not In System [facility] OUTSIDE IMAGING W /OUT INTERPRETATION Final Result documented in this encounter Visit Diagnoses Not on filedocumented in this encounter Care Teams Negative Restorer Relationship Specialty Start Date End Date Trinh Pack MD PCP - General 02/27/21 documented as of this encounter Additional Source Comments The information contained in this document represents components of the legal health record. It is not the complete legal health record.[facility]
== END 2025-04-18 10:20 | disposition home or self-care (01) ==
LOC: HO.HHCL 10:19
PROVIDERS: Internal Medicine Medical Oncology; PCP Nurse Practitioner; Visit Provider Nurse Practitioner
DX: Z00.00 Encounter for general adult medical examination without abnormal findings (principal); Z11.1 Encounter for screening for respiratory tuberculosis; C85.10 Unspecified B-cell lymphoma, unspecified site; E66.813 Obesity, class 3; Z68.42 Body mass index [BMI] 45.0-49.9, adult
CPT/HCPCS: 36415; 80053; 80061; 83036; 83615; 84443; 85025; 86481